=== PATIENT | male | born 1970 | race Caucasian/White ===

== ENCOUNTER → 2016-07-18 | Outpatient (CLI) | payer BC ==
[~2016-07-18] MED LIST: ALBUAER19 INH; COLE625T PO; CYAN3INJ INJ; DEXA4INJ38 IV; MRC50 PO; MULT-663 PO; RMCI IV; SITA100T3 PO; [UNRECOGNIZED DRUG - OTHER] IV
[2016-07-18 13:49] LABS: ALB/GLOB RATIO 0.9 (0.9-2); ALKALINE PHOSPHATASE 86 U/L (45-117); ALT/SGPT 31 U/L (12-78); AST/SGOT 17 U/L (15-37); BLOOD UREA NITROGEN 15 mg/dl (7-18); BUN/CREATININE RATIO 18.6 (10-20); CALCIUM 8.4 mg/dl (8.5-10.1); CARBON DIOXIDE 30 mmol/L (21-32); CHLORIDE 106 mmol/L (98-107); CREATININE 0.82 mg/dl (0.60-1.40); GLUCOSE 86 mg/dl (70-99); SODIUM 142 mmol/L (136-145)
== END | disposition home or self-care (01) ==
LOC: C.LAB1850 11:47
PROVIDERS: ATTEND Internal Medicine Infectious Disease
DX: R76.12 Nonspecific reaction to cell mediated immunity measurement of gamma interferon antigen response without active tuberculosis (principal)

== ENCOUNTER → 2016-11-20 | Outpatient (CLI) | payer BC ==
[~2016-11-20] MED LIST changes: +DEXA4INJ32 IV; -DEXA4INJ38 IV
[2016-11-20 10:49] LABS: BASO % 0.5 %; BASO ABS # 0.04 K/uL (0-0.2); COMPLETE YES; EOS % 5.6 %; HEMATOCRIT 42.8 % (42-52); IG% 0.3 %; LYMPH % 33.2 %; LYMPH ABS # 2.45 K/uL (1.2-3.4); MEAN CELL VOLUME 92.4 fL (80-100); MEAN CORPUSCULAR HEMOGLOBIN 32.6 pg (25-34); MEAN CORPUSCULAR HGB CONC 35.3 g/dl (32-36); MEAN PLATELET VOLUME 9.7 fL (7.4-10.4); MONO % 8.5 %; NEUT % 51.9 %; PLATELET COUNT 242 K/uL (130-400); RED BLOOD COUNT 4.63 M/uL (4.7-6.1); WHITE BLOOD COUNT 7.37 K/uL (4.8-10.8)
[2016-11-20 11:08] LABS: ALT/SGPT 44 U/L (12-78); BLOOD UREA NITROGEN 17 mg/dl (7-18); BUN/CREATININE RATIO 17.7 (10-20); CARBON DIOXIDE 26 mmol/L (21-32); CHLORIDE 108 mmol/L (98-107); CHOLESTEROL 131 mg/dl (0-200); CREATININE 0.94 mg/dl (0.60-1.40); GLUCOSE 164 mg/dl (70-99); POTASSIUM 4.1 mmol/L (3.5-5.1); SODIUM 140 mmol/L (136-145); TRIGLYCERIDES 634 mg/dl (0-150)
[2016-11-20 11:22] LABS: ALB/GLOB RATIO 0.9 (0.9-2); ALKALINE PHOSPHATASE 113 U/L (45-117); AST/SGOT 18 U/L (15-37); CHOLESTEROL/HDL RATIO 7.7; HDL CHOLESTEROL 17 mg/dl
[2016-11-20 11:31] LABS: CALCIUM 8.4 mg/dl (8.5-10.1)
== END | disposition home or self-care (01) ==
LOC: C.LABBC 08:08
PROVIDERS: ATTEND Nurse Practitioner Family
DX: K50.90 Crohn's disease, unspecified, without complications (principal); E88.81 Metabolic syndrome and other insulin resistance; G47.33 Obstructive sleep apnea (adult) (pediatric); R73.9 Hyperglycemia, unspecified; K21.9 Gastro-esophageal reflux disease without esophagitis; J45.909 Unspecified asthma, uncomplicated; F32.9 Major depressive disorder, single episode, unspecified

== ENCOUNTER → 2017-04-02 | Outpatient (CLI) | payer BC ==
[~2017-04-02] MED LIST changes: -DEXA4INJ32 IV; +DEXA4INJ38 IV
[2017-04-02 12:50] LABS: BASO % 0.5 %; BASO ABS # 0.04 K/uL (0-0.2); COMPLETE YES; EOS % 4.8 %; HEMATOCRIT 43.2 % (42-52); IG% 0.1 %; LYMPH % 33.6 %; LYMPH ABS # 2.81 K/uL (1.2-3.4); MEAN CELL VOLUME 91.1 fL (80-100); MEAN CORPUSCULAR HEMOGLOBIN 32.5 pg (25-34); MEAN CORPUSCULAR HGB CONC 35.6 g/dl (32-36); MEAN PLATELET VOLUME 9.6 fL (7.4-10.4); MONO % 7.7 %; NEUT % 53.3 %; PLATELET COUNT 230 K/uL (130-400); RED BLOOD COUNT 4.74 M/uL (4.7-6.1); WHITE BLOOD COUNT 8.36 K/uL (4.8-10.8)
[2017-04-02 13:24] LABS: ALKALINE PHOSPHATASE 91 U/L (45-117); ALT/SGPT 30 U/L (12-78); AST/SGOT 15 U/L (15-37); BLOOD UREA NITROGEN 14 mg/dl (7-18); BUN/CREATININE RATIO 20.4 (10-20); C-REACTIVE PROTEIN < 0.29 mg/dl (0-0.29); CALCIUM 9.1 mg/dl (8.5-10.1); CARBON DIOXIDE 26 mmol/L (21-32); CHLORIDE 106 mmol/L (98-107); GLUCOSE 92 mg/dl (70-99); POTASSIUM 3.9 mmol/L (3.5-5.1); SODIUM 139 mmol/L (136-145)
[2017-04-04 14:14] LABS: QUANTIF TB AG-NIL 0.36 IU/ML; QUANTIFERON NIL 0.04 IU/ML
== END | disposition home or self-care (01) ==
LOC: C.LAB 12:05
PROVIDERS: ATTEND Registered Nurse
DX: K50.90 Crohn's disease, unspecified, without complications (principal)

== ENCOUNTER → 2017-04-07 | Outpatient (CLI) | payer BC ==
--- NOTE | 2017-04-07 16:47 | DIAGNOSTIC IMAGING REPORT ---
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 FINDINGS: The lungs are clear. Cardiac silhouette remains mildly enlarged. No pleural effusions. No pneumothorax. IMPRESSION: Stable mild cardiomegaly. Electronically signed by: Jarrett Alvarez M.D. 04/07/2017 4:46 PM Dictated Date/Time: 04/07/2017 4:45 PM
== END | disposition home or self-care (01) ==
LOC: C.RAD 16:33
PROVIDERS: ATTEND Registered Nurse
DX: R76.12 Nonspecific reaction to cell mediated immunity measurement of gamma interferon antigen response without active tuberculosis (principal); I51.7 Cardiomegaly

== ENCOUNTER → 2017-05-08 | Outpatient (CLI) | payer BC ==
[~2017-05-08] MED LIST changes: +DEXA4INJ32 IV; -DEXA4INJ38 IV
== END | disposition home or self-care (01) ==
LOC: C.MAMM 14:31
PROVIDERS: ATTEND Registered Nurse
DX: K50.90 Crohn's disease, unspecified, without complications (principal); M85.852 Other specified disorders of bone density and structure, left thigh

== ENCOUNTER → 2017-05-21 | Outpatient (CLI) | payer BC ==
[2017-05-21 10:04] LABS: ALT/SGPT 45 U/L (12-78); AST/SGOT 21 U/L (15-37); BLOOD UREA NITROGEN 17 mg/dl (7-18); BUN/CREATININE RATIO 21.2 (10-20); CALCIUM 8.6 mg/dl (8.5-10.1); CARBON DIOXIDE 28 mmol/L (21-32); CHLORIDE 106 mmol/L (98-107); CREATININE 0.79 mg/dl (0.60-1.40); GLUCOSE 172 mg/dl (70-99); POTASSIUM 3.7 mmol/L (3.5-5.1); SODIUM 140 mmol/L (136-145)
[2017-05-21 10:07] LABS: ALB/GLOB RATIO 0.9 (0.9-2); ALKALINE PHOSPHATASE 98 U/L (45-117); CHOLESTEROL 122 mg/dl (0-200); CHOLESTEROL/HDL RATIO 4.5; HDL CHOLESTEROL 27 mg/dl; LDL CHOLESTEROL CALCULATED 19 mg/dl; TRIGLYCERIDES 382 mg/dl (0-150); VERY LOW DENSITY LIPOPROT CALC 76 mg/dl
[2017-05-21 10:12] LABS: BASO % 0.5 %; BASO ABS # 0.04 K/uL (0-0.2); COMPLETE YES; EOS % 6.3 %; HEMATOCRIT 44.1 % (42-52); IG% 0.3 %; LYMPH % 31.8 %; LYMPH ABS # 2.32 K/uL (1.2-3.4); MEAN CELL VOLUME 91.5 fL (80-100); MEAN CORPUSCULAR HEMOGLOBIN 33.2 pg (25-34); MEAN CORPUSCULAR HGB CONC 36.3 g/dl (32-36); MEAN PLATELET VOLUME 10.1 fL (7.4-10.4); NEUT % 52.1 %; PLATELET COUNT 233 K/uL (130-400); RED BLOOD COUNT 4.82 M/uL (4.7-6.1)
[2017-05-21 10:22] LABS: ESTIMATED AVERAGE GLUCOSE 117 mg/dl; HA1C FLAG Normal (Normal)
[2017-05-21 10:31] LABS: RATIO 15.4 mcg/mg (0-30.0)
== END | disposition home or self-care (01) ==
LOC: C.LAB 06:58
PROVIDERS: ATTEND Nurse Practitioner Family
DX: K50.90 Crohn's disease, unspecified, without complications (principal); E88.81 Metabolic syndrome and other insulin resistance; G47.33 Obstructive sleep apnea (adult) (pediatric); K21.9 Gastro-esophageal reflux disease without esophagitis; E66.9 Obesity, unspecified; J45.909 Unspecified asthma, uncomplicated; F32.9 Major depressive disorder, single episode, unspecified; R73.9 Hyperglycemia, unspecified

== ENCOUNTER 2023-04-22 09:47 | Inpatient (IN) ==
[2023-04-22 11:13] LABS: Basophils # (auto) 0.04 K/uL (0.00-0.20); Basophils % (auto) 0.3 %; Eosinophils # (auto) 0.08 K/uL (0.00-0.50); Eosinophils % (auto) 0.6 %; Hematocrit (blood only) 45.8 % (42.0-52.0); Hemoglobin 16.5 g/dl (14.0-18.0); Immature Granulocytes # (auto) 0.04 K/uL (0.01-0.20); Immature Granulocytes % (auto) 0.3 %; Lymphocytes # (auto) 1.43 K/uL (1.20-3.40); Lymphocytes % (auto) 11.4 %; Mean Corpuscular Hemoglobin 31.8 pg (25.0-34.0); Mean Corpuscular Volume 88.2 fL (80.0-100.0); Mean Platelet Volume 9.6 fL (9.4-12.4); Monocytes % (auto) 4.8 %; Neutrophils % (auto) 82.6 %; Platelet Count 263 K/uL (130-400); RDW Coefficient of Variation 12.7 % (11.5-14.5); RDW Standard Deviation 41.1 fL (36.4-46.3); Red Blood Count 5.19 M/uL (4.70-6.10); White Blood Count 12.59 K/ul (4.8-10.8)
[2023-04-22 11:25] LABS: Albumin Globulin Ratio 1.4 (0.9-2); Albumin Level 4.6 gm/dl (3.4-5.0); BUN Creatinine Ratio 22.9 (10-20); Bilirubin,Total 1.6 mg/dl (0.2-1.0); Calcium 9.9 mg/dl (8.6-10.3); Globulin 3.4 gm/dl (2.5-4.0); Potassium 4.4 mmol/L (3.5-5.1)
[2023-04-22] MEDS ORDERED: OPTIRAY 320 100ml IV ONE (11:57)
--- NOTE | 2023-04-22 12:42 | CT Scan Report ---
ABDOMEN AND PELVIS CT WITH IV CONTRAST CT DOSE: 1510.57 mGy.cm HISTORY: Acute abdominal pain in patient with history of inflammatory bowel disease Abdominal pain TECHNIQUE: Multiaxial CT images of the abdomen and pelvis were performed following the IV administrat ion of 93 cc of Optiray, A dose lowering technique was utilized adhering to the principles of ALARA. COMPARISON STUDY: 06/25/2013 FINDINGS: A nonspecific subcarinal lymphadenopathy. Clear lung bases. No free air. The spleen is mild ly enlarged, 15.7 cm. The liver is mildly enlarged, 21 cm in length. Hepatic steatosis. Patency of th e hepatic and portal veins. Distended gallbladder with cholelithiasis, borderline wall thickening and trace pericholecystic edema. 3 mm calcification noted on image 168 series 3 which appears to be with in the distal common bile duct. No significant biliary ductal dilation. Unremarkable pancreas and adr enal glands. 3 mm nonobstructing calculus of the interpolar right kidney. There is no hydronephrosis. Decompressed urinary bladder with mild wall thickening. Mild prostatomegaly. Surgical clips of the scrotum. Borde rline enlarged inguinal lymph nodes. No abdominal aortic aneurysm. No bowel obstruction. Possible chr onic perianal fistula on image 409 series 3. No abscess. There is mild nonspecific circumferential wa ll thickening of the inferior rectum with subcentimeter perirectal lymph nodes. Colonic diverticulosi s. Postoperative changes of right hemicolectomy with ileocolic anastomosis. Postoperative changes of the anterior abdominal wall. No acute fracture. IMPRESSION: 1. Cholelithiasis with CT evidence of mild acute cholecystitis. 2. Choledocholithiasis without biliary ductal dilation. 3. Mild rectal wall thickening with adjacent subcentimeter perirectal lymph nodes may represent a non specific proctitis, possibly related to the patient's chronic inflammatory bowel disease. This findin g could be correlated with colonoscopy. 4. Prior right hemicolectomy with ileocolic anastomosis. 5. No bowel obstruction or pneumoperitoneum. 6. Right nephrolithiasis without hydronephrosis. 7. Hepatosplenomegaly with hepatic steatosis. ACT 112: Negative or not required by law. The above report was generated using voice recognition software. It may contain grammatical, syntax o r spelling errors. Electronically signed by: Freddie Davidson M.D. 04/22/2023 12:40 PM
[2023-04-22] MEDS ORDERED: SODIUM CHLORIDE 0.9% 1,000 ML IV ONE (12:49)
[2023-04-22] MEDS ORDERED: ACETAMINOPHEN 1,000 MG/100 ML VIAL IV STA (12:49)
--- NOTE | 2023-04-22 12:53 | Emergency Department Note ---
Impression & Plan Cholecystitis, Choledocholithiasis ED Provider Note NAME: LONG GONZALEZ AGE: 52 SEX: M : 1970 ARRIVES VIA: Walk-In INFORMANT: Patient, ED PROVIDER(S): Marilin Rivas MD CHIEF COMPLAINT: Abdominal pain HPI: This is a 52-year-old male with history of Crohn's status post partial colectomy, previous SBO presenting for abdominal pain. He states that around 2:30 in the morning he began having abdominal pain on the right side. In the past he has had similar pain and thought it is related to an SBO. He came in for further evaluation. At this time he notes he has had 1 episode of bowel movement, nonbloody, otherwise nausea without vomiting. No fevers or chills. He notes he does not have his appendix Points around the any further. Does have his gallbladder and points around the any further. Does have his gallbladder in the past ROS: See above HPI for pertinent positives & negatives. A total of 10 systems reviewed and were otherwise negative. PAST MEDICAL HISTORY: See Below PAST SURGICAL HISTORY: See Below FAMILY HISTORY: See Below SOCIAL HISTORY: See Below HOME MEDICATIONS: See Below ALLERGIES: See Below VITALS: See Below PHYSICAL EXAMINATION: General: resting comfortably in no acute distress Head: Normocephalic and atraumatic Eyes: Normal inspection, extraocular muscles intact, no conjunctival pallor Ear, nose, throat: Normal external exam Neck: Normal range of motion Respiratory: Patient is in no respiratory distress, lungs clear to auscultation bilaterally Cardiovascular: RRR without murmur appreciated GI: Soft, right upper quadrant tenderness, positive Og Extremities: pulses intact with good cap refills, no LE pitting edema or calf tenderness Neuro: The patient awake and alert, appropriately conversive,no focal decifits Skin: Warm, dry, and intact MEDICAL DECISION MAKING: This is a 52-year-old male history of Crohn's disease status post colectomy, previous SBO, presenting for abdominal pain. Patient has a right upper quadrant pain, consider multiple etiologies including cholecystitis. Patient's triage work-up including blood work and CT imaging do show sniffing abnormalities. Patient CT imaging reveals cholecystitis as well as choledocholithiasis. Sodium is 133. Total bilirubin is 1.6. Otherwise no significant abnormalities. Urinalysis does not reveal signs of urinary tract infection. Patient leukocytosis is 12.59 otherwise Discussed with general surgery on-call, Dr. Magallanes, who evaluated the patient at bedside. They recommended admission to medicine and GI consult. I talked to the PA for GI who will discuss with attending, with plan for ERCP. Discussed with Dr. Mckeon for admission for cholecystitis/choledocholithiasis. Triage Nursing notes reviewed. Prior medical records reviewed Vital Signs: reviewed and remarkable for no significant abnormalities Differential diagnosis: Cholecystitis, SBO, pancreatitis, volvulus ER treatment provided: See below Diagnostics interpreted by me: ECG: None Cardiac Monitoring: An order was placed for continuous cardiac monitoring. The monitor shows a rate of 78 with sinus rhythm. Laboratory studies: As stated above and show below. Imaging studies: See below. Radiographic imaging was reviewed by myself Consultation(s): General surgery, GI Past Med/Surg History Medical History (Updated 04/22/23 @ 17:05 by Marilin Rivas MD) Anxiety Asthma exercise induced--inhaler prn Colon polyps Crohns disease Diabetes mellitus, type 2 on trulicity Enlarged heart worked up--found no issues, no mobile homes repairer History of vertebral anomaly, anal atresia, tracheo-esophageal fistula, esophageal atresia, renal anomaly, and radial dysplasia (VATER) association Latent tuberculosis Sleep apnea cpap Surgical History History of bowel resection 2000 @ [facility] pt states 4 ft of small intestine and ileum removed History of colonoscopy last 02/2020 @ [facility] History of herniorrhaphy x3 History of ileostomy History of major abdominal surgery "lateral release" d/t hernias History of reversal of ileostomy History of tooth extraction History of wisdom tooth extraction Hx of vasectomy S/P appendectomy Family History Grandfather (Maternal) Diabetes Grandfather (Paternal) Family history of reaction to anesthesia 40yrs ago had hiccups after sx (pt does not know what kind of surgery) believes it was general anesthesia---no other information provided Denies family history of Colon cancer Ovarian cancer Prostate cancer Myocardial infarction Breast cancer Ulcerative colitis Social History Smoking Status: Never smoker Second Hand Exposure: No; Do You Dip or Chew Tobacco: No; Hx Alcohol Use: No Hx Substance Use: No Preferred Language: Georgian Communication Ability: Effective Visual Impairment: No Limitations Hearing Ability: Normal Loom Mechanic Required: No Beliefs That Will Affect Care: None marital status: Current Living Situation: Spouse Current Living Situation Comment: Lives with current occupational status: 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 Feels Safe at Home: Yes Childhood Exposure to Second-Hand Smoke: No Diet: regular Dental Care, Regularly: Yes Physical Activity Frequency: 1-2 Times per Week Seatbelt Use: always Sunscreen Use: Yes Assistive Devices: Contacts and CPAP Allergies Allergies Allergy/AdvReac Type Severity Reaction Status Date / Time No Known Drug Allergies Allergy Unknown Verified 04/22/23 12:43 Home Meds Home Medications Medication Instructions Recorded Confirmed infliximab 100 mg intravenous 10 mg IV UD 05/03/19 04/22/23 solution (Remicade) calcium carbonate 500 mg-vitamin 1 tab PO QPM 06/03/19 04/22/23 D3 5 mcg (200 unit) tablet (Calcium 500 + D) dexamethasone sodium phos (PF) 10 5 mg IV UD REACTION TO REMICADE 06/03/19 04/22/23 mg/mL injection kit colesevelam 625 mg tablet (WelChol) 625 mg PO BID 04/22/23 04/22/23 semaglutide 0.25 mg or 0.5 mg (2 0.5 mg subcut WK 04/22/23 04/22/23 mg/3 mL) subcutaneous pen injector (Ozempic) venlafaxine 37.5 mg 0 mg PO QPM 04/22/23 04/22/23 capsule,extended release 24 hr (Effexor XR) Previous Rx's Medication Instructions Recorded blood sugar diagnostic #10 ea 04/28/20 blood-glucose meter #1 ea 04/28/20 lancets #100 ea 04/25/21 albuterol sulfate 90 mcg/actuation 2 puff inhalation Q6H PRN Wheezing 10/14/22 aerosol inhaler #8.5 grams blood sugar diagnostic (OneTouch #100 ea 10/14/22 Verio test strips) cyanocobalamin (vitamin B-12) 1,000 mcg IM Q7D #30 mL 10/14/22 1,000 mcg/mL injection solution mercaptopurine 50 mg tablet 100 mg PO QPM #180 tabs 10/14/22 syringe with needle 3 mL 25 gauge #30 ea 12/18/22 x 1" (BD Luer-Ying Syringe) Results & Data (ED) Vital Signs Vital Signs - 24 hr 04/22/23 10:17 04/22/23 13:59 04/22/23 15:00 Temperature 36 C L Temperature Source Temporal Artery Scan Pulse Rate 60 Pulse Rate [Finger] 79 78 Respiratory Rate 18 16 16 Respiratory Effort / Characteristics Non-Labored Respiratory Depth Normal Blood Pressure 170/98 H Blood Pressure [Right Arm] 159/98 H 162/104 H Blood Pressure Mean 122 Blood Pressure Mean [Right Arm] 118 123 Pulse Oximetry 99 97 96 Oxygen Delivery Method Room Air Room Air Room Air Sepsis Recent Fever Within 48 Hours No Sepsis New/Unexplained Change in Mental Status No Sepsis Action Taken by Nursing No Action Required Laboratory Data 04/22/23 10:44 04/22/23 10:44 Lab Results 04/22/23 04/22/23 04/22/23 Range/Units 10:44 10:44 14:01 WBC 12.59 H (4.8-10.8) K/ul RBC 5.19 (4.70-6.10) M/uL Hgb 16.5 (14.0-18.0) g/dl Hct 45.8 (42.0-52.0) % MCV 88.2 (80.0-100.0) fL MCH 31.8 (25.0-34.0) pg MCHC 36.0 (32.0-36.0) g/dL RDW Std Deviation 41.1 (36.4-46.3) fL RDW Coeff of Marcela 12.7 (11.5-14.5) % Plt Count 263 (130-400) K/uL MPV 9.6 (9.4-12.4) fL Immature Gran % (Auto) 0.3 % Neut % (Auto) 82.6 % Lymph % (Auto) 11.4 % [place] % (Auto) 4.8 % Eos % (Auto) 0.6 % Baso % (Auto) 0.3 % Neut # (Auto) 10.40 H (1.40-6.50) K/uL Lymph # (Auto) 1.43 (1.20-3.40) K/uL [place] # (Auto) 0.60 H (0.11-0.59) K/uL Eos # (Auto) 0.08 (0.00-0.50) K/uL Baso # (Auto) 0.04 (0.00-0.20) K/uL Immature Gran # (Auto) 0.04 (0.01-0.20) K/uL Sodium 133 L (136-145) mmol/L Potassium 4.4 (3.5-5.1) mmol/L Chloride 101 (98-107) mmol/L Carbon Dioxide 27 (21-32) mmol/L Anion Gap 5 (3-11) BUN 16 (6-23) mg/dl Creatinine 0.70 (0.6-1.4) mg/dl Est Cr Clr Drug Dosing 153.0 ml/min Est GFR ( Amer) 124.0 ml/min Est GFR (Non-Af Amer) 107.0 ml/min BUN/Creatinine Ratio 22.9 H (10-20) Glucose 232 H (70-99(Fasting)) mg/dl Calcium 9.9 (8.6-10.3) mg/dl Total Bilirubin 1.6 H (0.2-1.0) mg/dl AST 22 (13-39) U/L ALT 39 (7-52) U/L Alkaline Phosphatase 93 (34-104) U/L Total Protein 8.0 (6.0-8.3) gm/dl Albumin 4.6 (3.4-5.0) gm/dl Globulin 3.4 (2.5-4.0) gm/dl Albumin/Globulin Ratio 1.4 (0.9-2) Lipase 26 (11-82) U/L Urine Color Yellow Urine Appearance Clear (Clear) Urine pH 5.5 (4.5-7.5) Ur Specific [place] 1.044 H (1.000-1.030) Urine Protein Negative (Negative) Urine Glucose (UA) 3+ H (Negative) Urine Ketones Trace H (Negative) Urine Blood Negative (Negative) Urine Nitrite Negative (Negative) Urine Bilirubin Negative (Negative) Urine Urobilinogen Negative (Negative) Ur Leukocyte Esterase Negative (Negative) Administered Medications Hydromorphone HCl (Hydromorphone Inj 0.5 Mg/0.5 Ml Syr) 0.5 mg IV Q3H PRN PRN Reason: Pain Stop: 05/06/23 15:20 Last Admin: 04/22/23 16:21 Dose: 0.5 mg Documented By: ACC Parenteral Electrolytes (Plasma-Lyte A Ph 7.4) 1,000 mls @ 125 mls/hr IV .Q8H BLANCA Stop: 05/22/23 14:14 Last Admin: 04/22/23 16:35 Dose: 125 mls/hr Documented By: ACC Discontinued Medications Sodium Chloride (Nss) 1,000 mls @ 999 mls/hr IV .Q1H1M ONE Stop: 04/22/23 13:49 Last Infusion: 04/22/23 14:26 Dose: 0 mls/hr Documented By: Admin: 04/22/23 12:58 Dose: 999 mls/hr Documented By: ACC Acetaminophen (Ofirmev) 1,000 mg in 100 mls @ 400 mls/hr IV NOW STA Stop: 04/22/23 13:03 Last Infusion: 04/22/23 14:26 Dose: 0 mls/hr Documented By: Admin: 04/22/23 12:57 Dose: 400 mls/hr Documented By: ACC Ceftriaxone Sodium 2,000 mg/ (Dextrose) 50 mls @ 100 mls/hr IV NOW STA; Protocol Stop: 04/22/23 13:25 Last Infusion: 04/22/23 16:36 Dose: 0 mls/hr Documented By: Admin: 04/22/23 14:22 Dose: 100 mls/hr Documented By: ACC Metronidazole (Flagyl) 500 mg in 100 mls @ 100 mls/hr IV NOW STA; Protocol Stop: 04/22/23 15:07 Last Infusion: 04/22/23 16:36 Dose: 0 mls/hr Documented By: Admin: 04/22/23 15:30 Dose: 100 mls/hr Documented By: ACC Ioversol (Optiray 320 100ml) 93 ml IV ONCE ONE Stop: 04/22/23 11:58 Last Admin: 04/22/23 11:57 Dose: 93 ml Documented By: WILIAM Imaging Data Radiologist's Impression: Abdomen/Pelvis CT 04/22/23 11:[address] WITH IV CONTRAST CT DOSE: 1510.57 mGy.cm HISTORY: Acute abdominal pain in patient with history of inflammatory bowel disease Abdominal pain TECHNIQUE: Multiaxial CT images of the abdomen and pelvis were performed following the IV administration of 93 cc of Optiray, A dose lowering technique was utilized adhering to the principles of ALARA. COMPARISON STUDY: 06/25/2013 FINDINGS: A nonspecific subcarinal lymphadenopathy. Clear lung bases. No free air. The spleen is mildly enlarged, 15.7 cm. The liver is mildly enlarged, 21 cm in length. Hepatic steatosis. Patency of the hepatic and portal veins. Distended gallbladder with cholelithiasis, borderline wall thickening and trace pericholecystic edema. 3 mm calcification noted on image 168 series 3 which appears to be within the distal common bile duct. No significant biliary ductal dilation. Unremarkable pancreas and adrenal glands. 3 mm nonobstructing calculus of the interpolar right kidney. There is no hydronephrosis. Decompressed urinary bladder with mild wall thickening. Mild prostatomegaly. Surgical clips of the scrotum. Borderline enlarged inguinal lymph nodes. No abdominal aortic aneurysm. No bowel obstruction. Possible chronic perianal fistula on image 409 series 3. No abscess. There is mild nonspecific circumferential wall thickening of the inferior rectum with subcentimeter perirectal lymph nodes. Colonic diverticulosis. Postoperative changes of right hemicolectomy with ileocolic anastomosis. Postoperative changes of the anterior abdominal wall. No acute fracture. IMPRESSION: 1. Cholelithiasis with CT evidence of mild acute cholecystitis. 2. Choledocholithiasis without biliary ductal dilation. 3. Mild rectal wall thickening with adjacent subcentimeter perirectal lymph nodes may represent a nonspecific proctitis, possibly related to the patient's chronic inflammatory bowel disease. This finding could be correlated with colonoscopy. 4. Prior right hemicolectomy with ileocolic anastomosis. 5. No bowel obstruction or pneumoperitoneum. 6. Right nephrolithiasis without hydronephrosis. 7. Hepatosplenomegaly with hepatic steatosis. ACT 112: Negative or not required by law. The above report was generated using voice recognition software. It may contain grammatical, syntax or spelling errors. Electronically signed by: Freddie Davidson M.D. 04/22/2023 12:40 PM Discharge Plan Visit Data Chief Complaint: Abdominal Pain Stated Complaint: ABD PAIN ED Provider: Marilin Rivas Discharge Problem: Cholecystitis, Choledocholithiasis Forms Stand Alone Forms: [facility] Prescriptions Prescriptions: No Action Remicade 100 mg recon soln 10 mg IV UD Patient Comments: 10 mg/kg IV Q6 Weeks; Rx Instructions: 10 mg/kg IV Q6 Weeks; (DME) lancets Misc See Rx Instructions .ROUTE .MEDSUPPLY Qty: 100 0RF Rx Instructions: once daily as directed - dx E11.9 (DME) BD Luer-Ying Syringe 3 mL 25 gauge x 1" syringe See Rx Instructions .Route Qty: 30 0RF Rx Instructions: As directed calcium carbonate-vitamin D3 [Calcium 500 + D] 500 mg(1,250mg) -200 unit tablet 1 tab PO QPM dexamethasone sodium phos (PF) 10 mg/mL kit 5 mg IV UD (DME) blood sugar diagnostic Strip See Rx Instructions .ROUTE .MEDSUPPLY Qty: 10 0RF Rx Instructions: once daily as directed - dx E11.9 (DME) blood-glucose meter Kit See Rx Instructions .ROUTE .MEDSUPPLY Qty: 1 0RF Rx Instructions: once daily as directed - dx E11.9 cyanocobalamin (vitamin B-12) 1,000 mcg/mL solution 1,000 mcg IM Q7D Qty: 30 3RF Rx Instructions: FRIDAY (DME) OneTouch Verio test strips Strip See Rx Instructions .ROUTE .MEDSUPPLY Qty: 100 1RF Rx Instructions: Use to test once daily albuterol sulfate 90 mcg/actuation HFA aerosol inhaler 2 puff INHALATION Q6H PRN (Reason: Wheezing) Qty: 8.5 1RF mercaptopurine 50 mg tablet 100 mg PO QPM Qty: 180 2RF venlafaxine [Effexor XR] 37.5 mg capsule,extended release 24hr 0 mg PO QPM Rx Instructions: Per pt, he is currently holding medication. PCP is not aware. Original directions were 75mg at bedtime colesevelam [WelChol] 625 mg tablet 625 mg PO BID Ozempic 0.25 mg or 0.5 mg (2 mg/3 mL) pen injector 0.5 mg subcut WK Rx Instructions: Mondays Referrals Referrals: Suhas Quiroz III, CRNP [Primary Care Provider] -
[2023-04-22] MEDS ORDERED: cefTRIAXone SODIUM 2,000 MG in DEXTROSE 5 % MINI-B 50 ML IV STA (12:56)
--- NOTE | 2023-04-22 13:48 | Surgery Consultation ---
Date of Consultation April 22, 2023 Assessment & Plan (1) Choledocholithiasis with acute cholecystitis: Patient is a 52 yo male with a PMH of Crohn disease, exercise induce asthma, HLD, HTN, Depression, BM, COOPER, obesity that presented to the [facility] ER with c/o right abdominal pain that started at 2 AM. Patient reports he had N/V earlier but denies currently. He has a known history of cholelithiasis that has been seen on prior CT exams however this is the first time he is has ever had pain. He has an extensive surgical history including partial right colectomy, temporary ileostomy with reversal, appendectomy, incisional hernia repair with mesh, lateral release with total vs partial mesh removal. Last abdominal surgery was 10 years ago at [place]. Patient states he takes Welchol daily which usually gives him diarrhea however the past few days he feels he has been constipated and last BM was this AM. Does not take blood thinners and has been NPO since MT. WBC 12.5, lactate 0.6, LFTs WNL other than T. Bilirubin 1.6 CT scan shows IMPRESSION: 1. Cholelithiasis with CT evidence of mild acute cholecystitis. 2. Choledocholithiasis without biliary ductal dilation. 3. Mild rectal wall thickening with adjacent subcentimeter perirectal lymph nodes may represent a nonspecific proctitis, possibly related to the patient's chronic inflammatory bowel disease. This finding could be correlated with colonoscopy. 4. Prior right hemicolectomy with ileocolic anastomosis. 5. No bowel obstruction or pneumoperitoneum. 6. Right nephrolithiasis without hydronephrosis. 7. Hepatosplenomegaly with hepatic steatosis. Admit to medicine Continue IV fluids and antbx IV analgesics Keep NPO Consult GI, if patient can have ERCP tomorrow or today Will schedule for a Laparoscopic cholecystectomy for History of Present Illness Reason for Consultation: Mild Acute Cholecystitis Requesting Physician: Dr. Rivas Attending Physician: Dr. Rivas History of Present Illness Patient is a 52 yo male with a PMH of Crohn disease, exercise induce asthma, HLD, HTN, Depression, BM, COOPER, obesity that presented to the [facility] ER with c/o right abdominal pain that started at 2 AM. Patient reports he had N/V earlier but denies currently. He has a known history of cholelithiasis that has been seen on prior CT exams however this is the first time he is has ever had pain. He has an extensive surgical history including partial right colectomy, temporary ileostomy with reversal, appendectomy, incisional hernia repair with mesh, lateral release with total vs partial mesh removal. Last abdominal surgery was 10 years ago at [place]. Does not take blood thinners and has been NPO since MT. Allergies Allergy/AdvReac Type Severity Reaction Status Date / Time No Known Drug Allergies Allergy Unknown Verified 04/22/23 12:43 Home Medications Medication Instructions Recorded Confirmed Type infliximab 100 mg intravenous 10 mg IV UD 05/03/19 04/22/23 History solution (Remicade) calcium carbonate 500 mg-vitamin 1 tab PO QPM 06/03/19 04/22/23 History D3 5 mcg (200 unit) tablet (Calcium 500 + D) dexamethasone sodium phos (PF) 10 5 mg IV UD REACTION TO REMICADE 06/03/19 04/22/23 History mg/mL injection kit blood sugar diagnostic #10 ea 04/28/20 04/17/23 Rx blood-glucose meter #1 ea 04/28/20 04/17/23 Rx lancets #100 ea 04/25/21 04/17/23 Rx albuterol sulfate 90 mcg/actuation 2 puff inhalation Q6H PRN Wheezing 10/14/22 04/22/23 Rx aerosol inhaler #8.5 grams blood sugar diagnostic (OneTouch #100 ea 10/14/22 04/17/23 Rx Verio test strips) cyanocobalamin (vitamin B-12) 1,000 mcg IM Q7D #30 mL 10/14/22 04/22/23 Rx 1,000 mcg/mL injection solution mercaptopurine 50 mg tablet 100 mg PO QPM #180 tabs 10/14/22 04/22/23 Rx syringe with needle 3 mL 25 gauge #30 ea 12/18/22 04/17/23 Rx x 1" (BD Luer-Ying Syringe) colesevelam 625 mg tablet (WelChol) 625 mg PO BID 04/22/23 04/22/23 History semaglutide 0.25 mg or 0.5 mg (2 0.5 mg subcut WK 04/22/23 04/22/23 History mg/3 mL) subcutaneous pen injector ([employer]) venlafaxine 37.5 mg 0 mg PO QPM 04/22/23 04/22/23 History capsule,extended release 24 hr (Effexor XR) Patient History Medical History Anxiety Asthma exercise induced--inhaler prn Colon polyps Crohns disease Diabetes mellitus, type 2 on trulicity Enlarged heart worked up--found no issues, 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 History of vertebral anomaly, anal atresia, tracheo-esophageal fistula, esophageal atresia, renal anomaly, and radial dysplasia (VATER) association Latent tuberculosis Sleep apnea cpap Surgical History History of bowel resection 2000 @ [facility] pt states 4 ft of small intestine and ileum removed History of colonoscopy last 02/2020 @ [facility] History of herniorrhaphy x3 History of ileostomy History of major abdominal surgery "lateral release" d/t hernias History of reversal of ileostomy History of tooth extraction History of wisdom tooth extraction Hx of vasectomy S/P appendectomy Family History Grandfather (Maternal) Diabetes Grandfather (Paternal) Family history of reaction to anesthesia 40yrs ago had hiccups after sx (pt does not know what kind of surgery) believes it was general anesthesia---no other information provided Denies family history of Colon cancer Ovarian cancer Prostate cancer Myocardial infarction Breast cancer Ulcerative colitis Social History Smoking Status: Never smoker Second Hand Exposure: No; Do You Dip or Chew Tobacco: No; Hx Alcohol Use: No Hx Substance Use: No Preferred Language: Albanian Communication Ability: Effective Visual Impairment: No Limitations Hearing Ability: Normal Doctor Of Chiropractic Required: No Beliefs That Will Affect Care: None marital status: Current Living Situation: Spouse Current Living Situation Comment: Lives with current occupational status: 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 Feels Safe at Home: Yes Childhood Exposure to Second-Hand Smoke: No Diet: regular Dental Care, Regularly: Yes Physical Activity Frequency: 1-2 Times per Week Seatbelt Use: always Sunscreen Use: Yes Assistive Devices: None Review of Systems Constitutional: no fever, no chills and no sweats Respiratory: no dyspnea Cardiovascular: no chest pain Gastrointestinal: + abdominal pain, + nausea (Earlier this AM ) and + vomiting (earlier this AM ) Physical Exam Physical Exam: alert oriented Constitutional: + obese, cooperative and comfortable; no acute distress Respiratory: normal respiratory effort and able to speak in complete sentences; no respiratory distress Cardiovascular: Rate/Rhythm: regular rate Gastrointestinal (Abdomen): Inspection/Auscultation: + abdominal surgical scar Percussion/Palpation: + abdomen tender (RUQ ) and abdomen soft; no guarding Psychiatric: Orientation: alert, oriented x 3 and cooperative Results & Data Vital Signs (Past 12 Hours) Vital Signs Temp Pulse Resp BP Pulse Ox O2 Del Method 04/22/23 10:17 96.8 F L 60 18 170/98 H 99 Room Air Diagnostic Findings [place], [place] [phone] CT Scan Report Patient:LONG GONZALEZ Admit Date:04/22/23 MR#:[id number] Address1:[address] [place] [address] Acct ID:[id number] Address2:[facility] [address] Date:1970 [facility] Zip:[place] [address] Age:52 Location:ED Sex:M Room/Bed: Att Phy: Diagnosis:ABD PAIN [place]er Phy:Suhas Quiroz, THAD, KENTON Service Date:04/22/23 Fam Phy: Interpreting Phy:Freddie DavidsonAdmit Phy: Ordering Phy:Sujata Arreguin PA-C cc: ~ ABDOMEN AND PELVIS CT WITH IV CONTRAST CT DOSE: 1510.57 mGy.cm HISTORY: Acute abdominal pain in patient with history of inflammatory bowel disease Abdominal pain TECHNIQUE: Multiaxial CT images of the abdomen and pelvis were performed following the IV administration of 93 cc of Optiray, A dose lowering technique was utilized adhering to the principles of ALARA. COMPARISON STUDY: 06/25/2013 FINDINGS: A nonspecific subcarinal lymphadenopathy. Clear lung bases. No free air. The spleen is mildly enlarged, 15.7 cm. The liver is mildly enlarged, 21 cm in length. Hepatic steatosis. Patency of the hepatic and portal veins. Distended gallbladder with cholelithiasis, borderline wall thickening and trace pericholecystic edema. 3 mm calcification noted on image 168 series 3 which appears to be within the distal common bile duct. No significant biliary ductal dilation. Unremarkable pancreas and adrenal glands. 3 mm nonobstructing calculus of the interpolar right kidney. There is no hydronephrosis. Decompressed urinary bladder with mild wall thickening. Mild prostatomegaly. Surgical clips of the scrotum. Borderline enlarged inguinal lymph nodes. No abdominal aortic aneurysm. No bowel obstruction. Possible chronic perianal fistula on image 409 series 3. No abscess. There is mild nonspecific circumferential wall thickening of the inferior rectum with subcentimeter perirectal lymph nodes. Colonic diverticulosis. Postoperative changes of right hemicolectomy with ileocolic anastomosis. Postoperative changes of the anterior abdominal wall. No acute fracture. IMPRESSION: 1. Cholelithiasis with CT evidence of mild acute cholecystitis. 2. Choledocholithiasis without biliary ductal dilation. 3. Mild rectal wall thickening with adjacent subcentimeter perirectal lymph nodes may represent a nonspecific proctitis, possibly related to the patient's chronic inflammatory bowel disease. This finding could be correlated with co lonoscopy. 4. Prior right hemicolectomy with ileocolic anastomosis. 5. No bowel obstruction or pneumoperitoneum. 6. Right nephrolithiasis without hydronephrosis. 7. Hepatosplenomegaly with hepatic steatosis. ACT 112: Negative or not required by law. The above report was generated using voice recognition software. It may contain grammatical, syntax or spelling errors. Electronically signed by: Freddie Davidson M.D. 04/22/2023 12:40 PM Dictated:04/22/23 1228 Transcribed: 04/22/23 1228 PG Care Time/CCT Total # of Minutes Spent Total Time Spent with Patient: Total time spent is greater than 50% in coordination of care (as documented) at patient's floor/unit and/or counseling patient: Coding Level of Care Code 24107 IN/OBS CONSULT LVL 3,45M Diagnoses Choledocholithiasis with acute cholecystitis K80.42
[2023-04-22] MEDS ORDERED: metroNIDAZOLE 500 MG/100 ML BAG IV STA (14:08)
--- NOTE | 2023-04-22 14:09 | History & Physical Report ---
Date of Service April 22, 2023 Assessment & Plan (1) Choledocholithiasis with acute cholecystitis: Plan: Ceftriaxone + metronidazole Consult surgery for eventual cholecystectomy Consult gastroenterology for ERCP, NPO, IV fluids Trend CMP Lipase WNL (2) Crohns disease: Plan: Will hold all medications at this time. Recently had Remicade. (3) Obstructive sleep apnea: Plan: CPAP HS - patient to bring in his own (4) Depression: Plan: Currently not taking venlafaxine (5) Diabetes mellitus: Plan: HbA1C 5.8 [04/03] On Ozempic as outpatient, takes on a Friday therefore really shouldn't require insulin although he has 3+ glucose in his urine and glucose 232 on ER labs therefore suspect he is a low glucosylation rate and will prescribe Novolog for correction only Novolog: --Goal BSG Range: Low 110 mg/dL, High 140 mg/dL --Correction Factor: 45 mg/dL/unit No carb ratio --BSGs ACHS if eating, q6h if npo Plan VTE Prophylaxis - deferred pending ERCP/surgery decision Diet - NPO pending possible ERCP today Disposition - admit to med/surg Admission and Anticipated Discharge Date Admission Date: April 22, 2023 History of Present Illness Chief Complaint: Abdominal pain Primary Care Provider: Suhas Quiroz III, KENTON Musa Parker is a 52 year old male with Crohn's disease who presents to the ER with right sided abdominal pain. No prior history of biliary colic. Started while sleeping at 2am and woke him up, constant since then, no radiation. No diarrhea. Associated nausea and vomiting earlier. Severity 8/10 earlier, now 2/10. Prior history of colectomy for crohn's disease with prior small bowel obstructions. Allergies Allergy/AdvReac Type Severity Reaction Status Date / Time No Known Drug Allergies Allergy Unknown Verified 04/22/23 12:43 Home Medications Medication Instructions Recorded Confirmed Type infliximab 100 mg intravenous 10 mg IV UD 05/03/19 04/22/23 History solution (Remicade) calcium carbonate 500 mg-vitamin 1 tab PO QPM 06/03/19 04/22/23 History D3 5 mcg (200 unit) tablet (Calcium 500 + D) dexamethasone sodium phos (PF) 10 5 mg IV UD REACTION TO REMICADE 06/03/19 04/22/23 History mg/mL injection kit blood sugar diagnostic #10 ea 04/28/20 04/17/23 Rx blood-glucose meter #1 ea 04/28/20 04/17/23 Rx lancets #100 ea 04/25/21 04/17/23 Rx albuterol sulfate 90 mcg/actuation 2 puff inhalation Q6H PRN Wheezing 10/14/22 04/22/23 Rx aerosol inhaler #8.5 grams blood sugar diagnostic (OneTouch #100 ea 10/14/22 04/17/23 Rx Verio test strips) cyanocobalamin (vitamin B-12) 1,000 mcg IM Q7D #30 mL 10/14/22 04/22/23 Rx 1,000 mcg/mL injection solution mercaptopurine 50 mg tablet 100 mg PO QPM #180 tabs 10/14/22 04/22/23 Rx syringe with needle 3 mL 25 gauge #30 ea 12/18/22 04/17/23 Rx x 1" (BD Luer-Ying Syringe) colesevelam 625 mg tablet (WelChol) 625 mg PO BID 04/22/23 04/22/23 History semaglutide 0.25 mg or 0.5 mg (2 0.5 mg subcut WK 04/22/23 04/22/23 History mg/3 mL) subcutaneous pen injector (Ozempic) venlafaxine 37.5 mg 0 mg PO QPM 04/22/23 04/22/23 History capsule,extended release 24 hr (Effexor XR) Past Med/Surg History Medical History (Updated 04/22/23 @ 17:05 by Marilin Rivas MD) Anxiety Asthma exercise induced--inhaler prn Colon polyps Crohns disease Diabetes mellitus, type 2 on trulicity Enlarged heart worked up--found no issues, 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 History of vertebral anomaly, anal atresia, tracheo-esophageal fistula, esophageal atresia, renal anomaly, and radial dysplasia (VATER) association Latent tuberculosis Sleep apnea cpap Surgical History History of bowel resection 2000 @ [facility] pt states 4 ft of small intestine and ileum removed History of colonoscopy last 02/2020 @ [facility] History of herniorrhaphy x3 History of ileostomy History of major abdominal surgery "lateral release" d/t hernias History of reversal of ileostomy History of tooth extraction History of wisdom tooth extraction Hx of vasectomy S/P appendectomy Family History Grandfather (Maternal) Diabetes Grandfather (Paternal) Family history of reaction to anesthesia 40yrs ago had hiccups after sx (pt does not know what kind of surgery) believes it was general anesthesia---no other information provided Denies family history of Colon cancer Ovarian cancer Prostate cancer Myocardial infarction Breast cancer Ulcerative colitis Social History Smoking Status: Never smoker Second Hand Exposure: No; Do You Dip or Chew Tobacco: No; Hx Alcohol Use: No Hx Substance Use: No Preferred Language: [place] Citizen Communication Ability: Effective Visual Impairment: No Limitations Hearing Ability: Normal Lean Leader Required: No Beliefs That Will Affect Care: None marital status: Current Living Situation: Spouse Current Living Situation Comment: Lives with current occupational status: 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 Feels Safe at Home: Yes Childhood Exposure to Second-Hand Smoke: No Diet: regular Dental Care, Regularly: Yes Physical Activity Frequency: 1-2 Times per Week Seatbelt Use: always Sunscreen Use: Yes Assistive Devices: CPAP Review of Systems Review of Systems: All systems reviewed & are unremarkable except as noted in HPI & below Physical Exam Constitutional: WD/WN, vitals as above Respiratory: normal respiratory effort, lungs clear to auscultation Cardiovascular: RRR, no murmur, no edema Gastrointestinal (Abdomen): Inspection/Auscultation: abdomen normal to inspection; abdomen not distended Percussion/Palpation: + abdomen tender (RUQ tenderness without rebound), + guarding and abdomen soft; abdomen not rigid Musculoskeletal: no cyanosis or clubbing, extremities motor strength 5/5 Skin: no rashes, warm and dry Neurologic: moves all extremities and awake; not confused Psychiatric: A+Ox3, euthymic affect Genitourinary: no CVA tenderness Results & Data Results & Data Vital Signs (Past 12 Hours) Vital Signs Temp Pulse Pulse Resp BP BP Pulse Ox 04/22/23 13:59 79 16 159/98 H 97 04/22/23 10:17 36 C L 60 18 170/98 H 99 O2 Del Method 04/22/23 13:59 Room Air 04/22/23 10:17 Room Air Laboratory Results Abnormal lab results 04/22/23 04/22/23 Range/Units 10:44 10:44 WBC 12.59 H (4.8-10.8) K/ul Neut # (Auto) 10.40 H (1.40-6.50) K/uL [place] # (Auto) 0.60 H (0.11-0.59) K/uL Sodium 133 L (136-145) mmol/L BUN/Creatinine Ratio 22.9 H (10-20) Glucose 232 H (70-99(Fasting)) mg/dl Total Bilirubin 1.6 H (0.2-1.0) mg/dl Diagnostic Findings ABDOMEN AND PELVIS CT WITH IV CONTRAST CT DOSE: 1510.57 mGy.cm HISTORY: Acute abdominal pain in patient with history of inflammatory bowel disease Abdominal pain TECHNIQUE: Multiaxial CT images of the abdomen and pelvis were performed following the IV administration of 93 cc of Optiray, A dose lowering technique was utilized adhering to the principles of ALARA. COMPARISON STUDY: 06/25/2013 FINDINGS: A nonspecific subcarinal lymphadenopathy. Clear lung bases. No free air. The spleen is mildly enlarged, 15.7 cm. The liver is mildly enlarged, 21 cm in length. Hepatic steatosis. Patency of the hepatic and portal veins. Distended gallbladder with cholelithiasis, borderline wall thickening and trace pericholecystic edema. 3 mm calcification noted on image 168 series 3 which appears to be within the distal common bile duct. No significant biliary ductal dilation. Unremarkable pancreas and adrenal glands. 3 mm nonobstructing calculus of the interpolar right kidney. There is no hydronephrosis. Decompressed urinary bladder with mild wall thickening. Mild prostatomegaly. Surgical clips of the scrotum. Borderline enlarged inguinal lymph nodes. No abdominal aortic aneurysm. No bowel obstruction. Possible chronic perianal fistula on image 409 series 3. No abscess. There is mild nonspecific circumferential wall thickening of the inferior rectum with subcentimeter perirectal lymph nodes. Colonic diverticulosis. Postoperative changes of right hemicolectomy with ileocolic anastomosis. Postoperative changes of the anterior abdominal wall. No acute fracture. IMPRESSION: 1. Cholelithiasis with CT evidence of mild acute cholecystitis. 2. Choledocholithiasis without biliary ductal dilation. 3. Mild rectal wall thickening with adjacent subcentimeter perirectal lymph nodes may represent a nonspecific proctitis, possibly related to the patient's chronic inflammatory bowel disease. This finding could be correlated with colonoscopy. 4. Prior right hemicolectomy with ileocolic anastomosis. 5. No bowel obstruction or pneumoperitoneum. 6. Right nephrolithiasis without hydronephrosis. 7. Hepatosplenomegaly with hepatic steatosis. Medications Administered ER Medications Given: Normal saline 1000ml bolus Acetaminophen 1000mg IV Ceftriaxone 2000mg IV Code Status & VTE Plan Code Status Full VTE Prophylaxis Plan VTE Prophylaxis will be ordered: Yes PG Care Time/CCT Total # of Minutes Spent Total Time Spent with Patient: Total time spent is greater than 50% in coordination of care (as documented) at patient's floor/unit and/or counseling patient: Coding Level of Care Code 07937 INT INP/OBS CARE MIN Diagnoses Choledocholithiasis with acute cholecystitis K80.42 Crohns disease K50.90 Obstructive sleep apnea G47.33 Depression F32.9 Diabetes mellitus E11.9
[2023-04-22 14:54] LABS: Appearance Urine Clear (Clear); Bilirubin Urine Negative (Negative); Blood Urine Negative (Negative); Color Urine Yellow; Glucose Urine UA 3+ (Negative); Ketones Urine Trace (Negative); Leukocyte Esterase Urine Negative (Negative); Nitrite Urine Negative (Negative); Protein Urine Negative (Negative); Specific Gravity Urine 1.044 (1.000-1.030); Urobilinogen Urine Negative (Negative); pH Urine 5.5 (4.5-7.5)
[2023-04-22] MEDS ORDERED: HYDROmorphone INJ 0.5 MG/0.5 ML SYR IV PRN (15:21)
[2023-04-22] MEDS: HYDROmorphone INJ 0.5 MG/0.5 ML SYR IV PRN ×2 (16:21→20:07)
[2023-04-22] MEDS: PLASMA-LYTE A 1,000 ML IV SCH ×2 (16:35→22:28)
[2023-04-22] MEDS ORDERED: ACETAMINOPHEN 1,000 MG/100 ML VIAL IV PRN (18:01)
[2023-04-22] MEDS ORDERED: DEXTROSE 50% 50 ML SYRINGE IV PRN (21:49)
[2023-04-22] MEDS ORDERED: CARBOHYDRATES FOR HYPOGLYCEMIA PO PRN (21:49)
[2023-04-22] MEDS ORDERED: GLUCAGON FOR INJ 1 MG VIAL SQ PRN (21:49)
[2023-04-22] MEDS ORDERED: GLUCOSE 40% GEL 15 GM TUBE PO PRN (21:49)
[2023-04-22] MEDS ORDERED: GLUCOSE 10 TAB/TUBE PO PRN (21:49)
[2023-04-22] MEDS ORDERED: INSULIN ASPART PER UNIT CHARGE SC ONE (21:57)
[2023-04-22] MEDS: metroNIDAZOLE 500 MG/100 ML BAG IV SCH (22:30)
[2023-04-23] MEDS ORDERED: Nursing to Pharmacy Communication SCH ×2 (00:30→15:15)
[2023-04-23] MEDS: INSULIN ASPART PER UNIT CHARGE SC SCH ×4 (05:12→21:04)
[2023-04-23] MEDS: PLASMA-LYTE A 1,000 ML IV SCH ×2 (05:13→15:06)
[2023-04-23] MEDS ORDERED: ONDANSETRON INJ 2 MG/ML 2 ML VIAL IV PRN ×2 (06:25→13:27)
[2023-04-23] MEDS ORDERED: INSULIN ASPART PER UNIT CHARGE SC SCH (07:30)
[2023-04-23 07:37] LABS: Basophils # (auto) 0.03 K/uL (0.00-0.20); Basophils % (auto) 0.3 %; Eosinophils # (auto) 0.07 K/uL (0.00-0.50); Eosinophils % (auto) 0.6 %; Hematocrit (blood only) 42.8 % (42.0-52.0); Hemoglobin 15.6 g/dl (14.0-18.0); Immature Granulocytes # (auto) 0.05 K/uL (0.01-0.20); Immature Granulocytes % (auto) 0.4 %; Lymphocytes # (auto) 1.74 K/uL (1.20-3.40); Lymphocytes % (auto) 14.8 %; Mean Corpuscular Hemoglobin 32.2 pg (25.0-34.0); Mean Corpuscular Hgb Conc 36.4 g/dL (32.0-36.0); Mean Corpuscular Volume 88.2 fL (80.0-100.0); Mean Platelet Volume 9.5 fL (9.4-12.4); Monocytes # (auto) 1.24 K/uL (0.11-0.59); Monocytes % (auto) 10.5 %; Neutrophils # (auto) 8.65 K/uL (1.40-6.50); Neutrophils % (auto) 73.4 %; Platelet Count 228 K/uL (130-400); RDW Coefficient of Variation 12.7 % (11.5-14.5); RDW Standard Deviation 40.8 fL (36.4-46.3); Red Blood Count 4.85 M/uL (4.70-6.10); White Blood Count 11.78 K/ul (4.8-10.8)
[2023-04-23 07:48] LABS: Albumin Globulin Ratio 1.3 (0.9-2); Albumin Level 3.9 gm/dl (3.4-5.0); BUN Creatinine Ratio 13.9 (10-20); Bilirubin,Total 1.7 mg/dl (0.2-1.0); Calcium 8.8 mg/dl (8.6-10.3); Creatinine Clr Calc Pharmacy 149.1 ml/min; Est GFR (African American) 122.6 ml/min; Est GFR (Non-African American) 105.8 ml/min; Globulin 3.1 gm/dl (2.5-4.0); Potassium 3.9 mmol/L (3.5-5.1)
[2023-04-23] MEDS: metroNIDAZOLE 500 MG/100 ML BAG IV SCH ×3 (08:12→22:47)
[2023-04-23] MEDS ORDERED: INDOMETHACIN 50 MG SUPP PR ONE ×2 (08:36→13:39)
--- NOTE | 2023-04-23 09:09 | Surgery Progress Note ---
Date of Service April 23, 2023 Assessment & Plan (1) Choledocholithiasis with acute cholecystitis: Plan: Patient seen at bedside No complaints , denies abdominal pain, n/v, CP, SOB Passing flatus WBC 11.7 (12) T. Bili 1.7 (1.6) VSS Patient to get a ERCP today, may a clear liquid diet until MN from a surgical stand point , however would follow GI recommendations post ERCP. Patient scheduled for Laparoscopic Cholecystectomy 04/24/23. Attempted to see Mr. Parker however he was in the operating room. I did discuss with gastroenterology and they were able to extract his common bile duct stones. We will plan on laparoscopic cholecystectomy tomorrow Admission and Anticipated Discharge Date Admission Date: April 22, 2023 Subjective patient resting in bed no complaints this AM Review of Systems Constitutional: no fever, no chills and no sweats Respiratory: no dyspnea Cardiovascular: no chest pain Gastrointestinal: no abdominal pain, no bloating, no nausea and no vomiting Genitourinary: no problem reported Physical Exam Physical Exam: alert , oriented , pleasant Constitutional: + obese, cooperative and comfortable; no acute distress Respiratory: normal respiratory effort and able to speak in complete sentences; no respiratory distress Cardiovascular: Rate/Rhythm: regular rate Gastrointestinal (Abdomen): Percussion/Palpation: abdomen soft; abdomen nontender and no guarding Obese abdomen Results & Data Vital Signs (Past 12 Hours) Vital Signs Temp Pulse Resp BP Pulse Ox O2 Del Method 04/23/23 08:02 97.7 F 86 18 115/72 96 Room Air PG Care Time/CCT Total # of Minutes Spent Total Time Spent with Patient: Total time spent is greater than 50% in coordination of care (as documented) at patient's floor/unit and/or counseling patient: Coding Level of Care Code 95085 SUB INP/OBS CARE 2/35MIN Diagnoses Choledocholithiasis with acute cholecystitis K80.42
--- NOTE | 2023-04-23 10:23 | Gastrointestinal Consultation ---
Date of Consultation April 23, 2023 Assessment & Plan (1) Choledocholithiasis with acute cholecystitis: Patient is a 52 years old male with history of Crohn's disease status post hemicolectomy and ileal colonic resection, doing well from his IBD standpoint on Remicade and mercaptopurine. He had right upper quadrant abdominal pain, nausea and vomiting along with findings of elevated total bilirubin, CT evidence of choledocholithiasis and cholecystitis. - NPO for ERCP in OR by Dr. Lawler today - Continue IV antibx coverage - IVF support - Cholecystectomy per surgery scheduled 04/24 - Trend LFTs - Further recs after ERCP completed Supervising Physician Co-Signing Physician Notes I performed a history and physical examination of the patient today, including specifically on physical exam - soft abdomen. I have discussed the patient's management with the advanced practitioner. Please refer to the nurse practitioner's note for the documented findings and plan of care. ERCP for choledocholithiasis Patient was explained in detail regarding risks, benefits, limitations and alternatives of the above endoscopic procedure. Risks of intravenous sedation used for procedure were also explained. Risks include, but not limited to perforation, bleeding, infection, respiratory distress, cardiac arrest and . Patient is also aware about the possibility of missed lesion. Patient's questions were answered. The patient verbalized understanding the information and agreed to undergo the procedure. History of Present Illness Reason for Consultation: Choledocholithiasis Requesting Physician: Dr. Melonie Bailon Attending Physician: Dr. Jamal Lawler History of Present Illness Patient is a 52 years old male with history of Crohn's disease status post ileal resection, SBO, hernia surgery, who presented to the ED yesterday with right upper quadrant abdominal pain. Has associated nausea and vomiting, no fevers or chills. Denies any changes in his bowel habits. He has been doing well from the Crohn's standpoint on Remicade IV and mercaptopurine for 20+ years. On evaluation he was noted to have mild leukocytosis, LFTs with isolated total bilirubin elevation at 1.7, AST, ALT, alkaline phosphatase, lipase normal. CT abdomen and pelvis with contrast showed signs of cholelithiasis and mild acute cholecystitis. He does have choledocholithiasis without biliary ductal dilatation. No signs of bowel obstruction, evidence of right hemicolectomy with ileocolic anastomosis, mild rectal wall thickening suggestive of nonspecific proctitis. He also has signs of hepatosteatosis with hepatosplenomegaly. Allergies Allergy/AdvReac Type Severity Reaction Status Date / Time No Known Drug Allergies Allergy Unknown Verified 04/22/23 12:43 Home Medications Medication Instructions Recorded Confirmed Type infliximab 100 mg intravenous 10 mg IV UD 05/03/19 04/22/23 History solution (Remicade) calcium carbonate 500 mg-vitamin 1 tab PO QPM 06/03/19 04/22/23 History D3 5 mcg (200 unit) tablet (Calcium 500 + D) dexamethasone sodium phos (PF) 10 5 mg IV UD REACTION TO REMICADE 06/03/19 04/22/23 History mg/mL injection kit blood sugar diagnostic #10 ea 04/28/20 04/17/23 Rx blood-glucose meter #1 ea 04/28/20 04/17/23 Rx lancets #100 ea 04/25/21 04/17/23 Rx albuterol sulfate 90 mcg/actuation 2 puff inhalation Q6H PRN Wheezing 10/14/22 04/22/23 Rx aerosol inhaler #8.5 grams blood sugar diagnostic (OneTouch #100 ea 10/14/22 04/17/23 Rx Verio test strips) cyanocobalamin (vitamin B-12) 1,000 mcg IM Q7D #30 mL 10/14/22 04/22/23 Rx 1,000 mcg/mL injection solution mercaptopurine 50 mg tablet 100 mg PO QPM #180 tabs 10/14/22 04/22/23 Rx syringe with needle 3 mL 25 gauge #30 ea 12/18/22 04/17/23 Rx x 1" (BD Luer-Ying Syringe) colesevelam 625 mg tablet (WelChol) 625 mg PO BID 04/22/23 04/22/23 History semaglutide 0.25 mg or 0.5 mg (2 0.5 mg subcut WK 04/22/23 04/22/23 History mg/3 mL) subcutaneous pen injector (Ozempic) venlafaxine 37.5 mg 0 mg PO QPM 04/22/23 04/22/23 History capsule,extended release 24 hr (Effexor XR) Patient History Medical History Anxiety Asthma exercise induced--inhaler prn Colon polyps Crohns disease Diabetes mellitus, type 2 on trulicity Enlarged heart worked up--found no issues, no 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 History of vertebral anomaly, anal atresia, tracheo-esophageal fistula, esophageal atresia, renal anomaly, and radial dysplasia (VATER) association Latent tuberculosis Sleep apnea cpap Surgical History History of bowel resection 2000 @ [facility] pt states 4 ft of small intestine and ileum removed History of colonoscopy last 02/2020 @ [facility] History of herniorrhaphy x3 History of ileostomy History of major abdominal surgery "lateral release" d/t hernias History of reversal of ileostomy History of tooth extraction History of wisdom tooth extraction Hx of vasectomy S/P appendectomy Family History Grandfather (Maternal) Diabetes Grandfather (Paternal) Family history of reaction to anesthesia 40yrs ago had hiccups after sx (pt does not know what kind of surgery) b elieves it was general anesthesia---no other information provided Denies family history of Colon cancer Ovarian cancer Prostate cancer Myocardial infarction Breast cancer Ulcerative colitis Social History Smoking Status: Never smoker Second Hand Exposure: No; Do You Dip or Chew Tobacco: No; Hx Alcohol Use: No Hx Substance Use: No Preferred Language: Bahraini Communication Ability: Effective Visual Impairment: No Limitations Hearing Ability: Normal Denture Processor Required: No Beliefs That Will Affect Care: None marital status: Current Living Situation: Spouse Current Living Situation Comment: Lives with current occupational status: 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 Feels Safe at Home: Yes Childhood Exposure to Second-Hand Smoke: No Diet: regular Dental Care, Regularly: Yes Physical Activity Frequency: 1-2 Times per Week Seatbelt Use: always Sunscreen Use: Yes Assistive Devices: None Review of Systems Review of Systems: All systems reviewed & are unremarkable except as noted in HPI & below Physical Exam Constitutional: WD/WN, vitals as above well groomed, cooperative and comfortable Eyes: PERRL, conjunctivae normal, anicteric sclerae ENMT: external ear and nose normal, oropharynx normal Respiratory: normal respiratory effort, lungs clear to auscultation Cardiovascular: RRR, no murmur, no edema Gastrointestinal (Abdomen): RUQ abd pain, bowel sounds hypoactive, soft Skin: no rashes, warm and dry no jaundice Neurologic: Motor/Sensory: no asterixis Psychiatric: A+Ox3, euthymic affect Lymphatic: no lymphedema Results & Data Vital Signs (Past 12 Hours) Vital Signs Temp Pulse Resp BP Pulse Ox O2 Del Method 04/23/23 08:02 36.5 C 86 18 115/72 96 Room Air
[2023-04-23] MEDS ORDERED: GLYCOPYRROLATE 0.2 MG/ML VIAL ONE (12:52)
[2023-04-23] MEDS ORDERED: ROCURONIUM BROMIDE 10 MG/ML 5 ML VIAL IV ONE (12:52)
[2023-04-23] MEDS ORDERED: LIDOCAINE 2% 2 ML VIAL/AMP(20MG/ML) INFIL ONE ×3 (12:52→13:50)
[2023-04-23] MEDS ORDERED: fentaNYL citrate PF 100 MCG/2 ML VIAL ONE ×2 (12:52)
[2023-04-23] MEDS ORDERED: MIDAZOLAM HCL 1 MG/ML 2ML VIAL ONE (12:52)
[2023-04-23] MEDS ORDERED: ONDANSETRON INJ 2 MG/ML 2 ML VIAL ONE (12:52)
[2023-04-23] MEDS ORDERED: PROPOFOL IV EMULSION 10 MG/ML 20 ML VIAL IV ONE (12:52)
[2023-04-23] MEDS ORDERED: NEOSTIGMINE METHYLSULFATE 1 MG/ML 10ML VIAL ONE (12:52)
[2023-04-23] MEDS ORDERED: DEXAMETHASONE SOD INJ 4 MG/ML VIAL ONE (12:52)
--- NOTE | 2023-04-23 13:03 | History & Physical Bridge Note ---
Date of Service April 23, 2023 History & Physical Bridge Note I have examined the patient, reviewed the History & Physical and in the interval since the performance of the History & Physical I have noted the following changes of clinical significance: no changes noted
--- NOTE | 2023-04-23 13:26 | Anesthesiology Consultation ---
Date of Service April 23, 2023 Assessment & Plan Chart Review Chart Review: Acceptable Risk for Surgery and Patient NOT seen in Pre Admission Testing Consults Requested none ASA ASA3 Proposed Anesthesia Anesthesia Type: General Risk / Benefits Reviewed With: PT / POA / Parent / Guardian, Accepts Plan and Informed Consent Obtained History Surgery Operation Date: 04/23/23 13:30 Proposed Procedures p Endoscopic Retrograde Cholangiopancreato - Jamal Lawler MD Operation Date: 04/24/23 09:05 Proposed Procedures p Laparoscopic Cholecystectomy - Sagar Magallanes DO Height/Weight Height: 6 ft Weight: 108.3 kg Allergies Allergy/AdvReac Type Severity Reaction Status Date / Time No Known Drug Allergies Allergy Unknown Verified 04/22/23 12:43 Medications Home Medications Medication Instructions Recorded Confirmed Last Taken infliximab 100 mg intravenous 10 mg IV UD 05/03/19 04/22/23 04/18/23 solution (Remicade) calcium carbonate 500 mg-vitamin 1 tab PO QPM 06/03/19 04/22/23 04/21/23 D3 5 mcg (200 unit) tablet (Calcium 500 + D) dexamethasone sodium phos (PF) 10 5 mg IV UD REACTION TO REMICADE 06/03/19 04/22/23 04/18/23 mg/mL injection kit blood sugar diagnostic #10 ea 04/28/20 04/17/23 Unknown blood-glucose meter #1 ea 04/28/20 04/17/23 Unknown lancets #100 ea 04/25/21 04/17/23 Unknown albuterol sulfate 90 mcg/actuation 2 puff inhalation Q6H PRN Wheezing 10/14/22 04/22/23 04/21/23 aerosol inhaler #8.5 grams blood sugar diagnostic (OneTouch #100 ea 10/14/22 04/17/23 Unknown Verio test strips) cyanocobalamin (vitamin B-12) 1,000 mcg IM Q7D #30 mL 10/14/22 04/22/23 04/17/23 1,000 mcg/mL injection solution mercaptopurine 50 mg tablet 100 mg PO QPM #180 tabs 10/14/22 04/22/23 04/21/23 syringe with needle 3 mL 25 gauge #30 ea 12/18/22 04/17/23 Unknown x 1" (BD Luer-Ying Syringe) colesevelam 625 mg tablet (WelChol) 625 mg PO BID 04/22/23 04/22/23 04/21/23 semaglutide 0.25 mg or 0.5 mg (2 0.5 mg subcut WK 04/22/23 04/22/23 04/14/23 mg/3 mL) subcutaneous pen injector (Ozempic) venlafaxine 37.5 mg 0 mg PO QPM 04/22/23 04/22/23 3 Months Ago capsule,extended release 24 hr ~01/20/23 (Effexor XR) Active Medications Generic Name Dose Route Start Last Admin Trade Name Freq PRN Reason Stop Dose Admin Hydromorphone HCl 0.5 mg 04/22/23 15:21 04/22/23 20:07 Hydromorphone Inj 0.5 Mg/0.5 Ml Syr IV 05/06/23 15:20 0.5 mg Q3H PRN Administration Pain Parenteral Electrolytes 1,000 mls @ 125 mls/hr 04/22/23 14:15 04/23/23 11:43 Plasma-Lyte A Ph 7.4 IV 04/23/23 22:14 0 mls/hr .Q8H BLANCA Infusion Acetaminophen 1,000 mg in 100 mls @ 400 mls/hr 04/22/23 18:01 04/23/23 06:21 Ofirmev IV 04/25/23 18:00 Infused Q8H PRN Infusion Pain or fever Metronidazole 500 mg in 100 mls @ 100 mls/hr 04/22/23 23:30 04/23/23 09:14 Flagyl IV 05/02/23 23:29 Infused Q8H BLANCA Infusion Protocol Insulin Aspart 0 units 04/23/23 06:00 04/23/23 12:12 Insulin Aspart Per Unit Charge SC 05/23/23 05:59 Not Given Q6 BLANCA NPO Date Last Intake of Fluids: 04/22/23 Time Last Intake of Fluids: 23:55 Date Last Intake of Solids: 04/22/23 Time Last Intake of Solids: 23:55 Past Medical History Medical History Anxiety Asthma exercise induced--inhaler prn Colon polyps Crohns disease Diabetes mellitus, type 2 on trulicity Enlarged heart worked up--found no issues, 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 History of vertebral anomaly, anal atresia, tracheo-esophageal fistula, esophageal atresia, renal anomaly, and radial dysplasia (VATER) association Latent tuberculosis Sleep apnea cpap Exercise / Class Metabolic Activity III < 4 Walking/Shop/Light housework Past Family History Family History Grandfather (Maternal) Diabetes Grandfather (Paternal) Family history of reaction to anesthesia 40yrs ago had hiccups after sx (pt does not know what kind of surgery) believes it was general anesthesia---no other information provided Denies family history of Colon cancer Ovarian cancer Prostate cancer Myocardial infarction Breast cancer Ulcerative colitis Past Surgical History Surgical History History of bowel resection 2000 @ [facility] pt states 4 ft of small intestine and ileum removed History of colonoscopy last 02/2020 @ [facility] History of herniorrhaphy x3 History of ileostomy History of major abdominal surgery "lateral release" d/t hernias History of reversal of ileostomy History of tooth extraction History of wisdom tooth extraction Hx of vasectomy S/P appendectomy Past Anesthesia History No Hx of Anesthesia Complications and No Family Hx of Anesthesia Complications History of PONV No Hx of PONV and No Hx of Motion Sickness Social History Smoking Status: Never smoker Do You Dip or Chew Tobacco: No Hx Alcohol Use: No Hx Substance Use: No substance use type: does not use Review of Systems ROS Unobtainable: All systems reviewed & are unremarkable except as noted in HPI & below Physical Exam Vital Signs Last Vital Signs Temp 37.3 C 04/23/23 12:46 Pulse 86 04/23/23 12:46 Resp 18 04/23/23 12:46 BP 146/104 H 04/23/23 12:46 Pulse Ox 97 04/23/23 12:46 O2 Del Method Room Air 04/23/23 12:46 Constitutional no acute distress ENMT Mouth: no TMJ abnormality Thyromental Distance: > or= 3.5 Finger Breadths Mallampati Class: IV Mouth / Teeth: 1. chip Neck normal visual inspection and trachea midline; neck extension not limited Respiratory normal respiratory effort Auscultation: lungs clear to auscultation bilaterally Cardiovascular Rate/Rhythm: regular rate and regular rhythm Heart Sounds: no murmur Musculoskeletal Spine: normal cervical ROM Extremities: full ROM of extremities Neurologic moves all extremities Psychiatric Orientation: alert and oriented x 3 Testing Laboratory Results 04/23/23 06:58 04/23/23 06:58 Urine Color Yellow 04/22/23 14:01 Urine Appearance Clear (Clear) 04/22/23 14:01 Urine pH 5.5 (4.5-7.5) 04/22/23 14:01 Ur Specific [place] 1.044 (1.000-1.030) H 04/22/23 14:01 Urine Protein Negative (Negative) 04/22/23 14:01 Urine Glucose (UA) 3+ (Negative) H 04/22/23 14:01 Urine Ketones Trace (Negative) H 04/22/23 14:01 Urine Nitrite Negative (Negative) 04/22/23 14:01 Ur Leukocyte Esterase Negative (Negative) 04/22/23 14:01 04/23/23 04/23/23 04/23/23 12:50 11:47 05:04 POC Glucose 148 H 148 H 164 H
[2023-04-23] MEDS ORDERED: ATROPINE SULFATE 0.1 MG/ML 10ML SYR IV PRN (13:27)
[2023-04-23] MEDS ORDERED: ePHEDrine sulfate 50 MG/ML AMP IV PRN (13:27)
[2023-04-23] MEDS ORDERED: fentaNYL citrate PF 100 MCG/2 ML VIAL IV PRN (13:27)
[2023-04-23] MEDS ORDERED: SUCCINYLCHOLINE CHLORIDE 20 MG/ML 10 ML VIAL IV ONE (13:43)
--- NOTE | 2023-04-23 13:54 | Operative Report ---
Post Operative Report Pre & Post Diagnosis Operation Date: 04/24/23 09:05 <No data on this case meets the specified criteria> I identified the patient and participated in the time-out.: Yes Procedure Operation Date: 04/24/23 09:05 <No data on this case meets the specified criteria> Surgeon Jamal Lawler MD Strike Out Machine Operator None Estimated Blood Loss 0 Findings See Below (CBD stones removed, stent placed) Specimens None Description of Procedure ERCP I attest to the content of the Intraoperative Record and any orders documented therein. Any exceptions are noted below.
--- NOTE | 2023-04-23 13:59 | GI REPORT ---
Patient Name: Musa Parker Procedure Date: 04/23/2023 12:52 PM Date of : 1970 Admit Type: Inpatient Age: 52 Gender: Male Attending MD: Jamal Lawler MD, Procedure: ERCP Providers: Jamal Lawler MD Referring MD: Melonie Bailon Md Indications: Bile duct stone on Computed Tomogram Scan, For therapy of bile duct stone(s) Medicines: General Anesthesia Complications: No immediate complications. Estimated Blood Loss: Estimated blood loss: none. Procedure: Pre-Anesthesia Assessment: - Prior to the procedure, a History and Physical was performed, and patient medications, allergies and sensitivities were reviewed. The patient's tolerance of previous anesthesia was reviewed. - The risks and benefits of the procedure and the sedation options and risks were discussed with the patient. All questions were answered and informed consent was obtained. - Patient identification and proposed procedure were verified prior to the procedure by the physician and the nurse. The procedure was verified in the procedure room. - Pre-procedure physical examination revealed no contraindications to sedation. After obtaining informed consent, the scope was passed under direct vision. Throughout the procedure, the patient's blood pressure, pulse, and oxygen saturations were monitored continuously. The Duodenoscope was introduced through the mouth, and advanced to the duodenum and used to inject contrast into the bile duct. The ERCP was accomplished without difficulty. The patient tolerated the procedure well. Findings: The nozzle worker film was normal. The esophagus was successfully intubated under direct vision. The scope was advanced to a normal major papilla in the descending duodenum without detailed examination of the pharynx, larynx and associated structures, and upper GI tract. The upper GI tract was grossly normal. A 0.035 inch straight standard wire was passed into the biliary tree. The short-nosed traction sphincterotome was passed over the guidewire and the bile duct was then deeply cannulated. Contrast was injected. I personally interpreted the bile duct images. Ductal flow of contrast was adequate. Image quality was adequate. Contrast extended to the main bile duct. Opacification of the entire biliary tree except for the gallbladder was successful. The maximum diameter of the ducts was 8 mm. Biliary sphincterotomy was made with a monofilament traction (standard) sphincterotome using ERBE electrocautery. There was no post-sphincterotomy bleeding. The biliary tree was swept with a 12 mm balloon starting at the bifurcation. Sludge was swept from the duct. A few stones were removed. No stones remained. One 10 Fr by 8 cm plastic biliary stent with a single external flap and a single internal flap was placed into the common bile duct. Bile flowed through the stent. The stent was in good position. Indomethacin 100 mg was given via suppository to decrease the risk of post-ERCP pancreatitis (PEP). Impression: - Choledocholithiasis was found. Complete removal was accomplished by biliary sphincterotomy and balloon extraction. - One plastic biliary stent was placed into the common bile duct. Recommendation: - [facility] care. - Repeat ERCP in 2 months to remove stent. Jamal Lawlre MD 04/23/2023 1:59:11 PM This report has been signed electronically. Note Initiated On: 04/23/2023 12:52 PM Number of Addenda: 0 I attest to the content of the Intraoperative Record and orders documented therein, exceptions below {[id number]}
--- NOTE | 2023-04-23 14:15 | Hospitalist Progress Note ---
Date of Service April 23, 2023 Assessment & Plan (1) Choledocholithiasis with acute cholecystitis: Plan: Ceftriaxone + metronidazole Now s/p ECRP with removal of stone and insertion of stent Appreciate GI Consult surgery for eventual cholecystectomy Repeat ERCP in 2 months for stent removal (2) Crohns disease: Plan: Will hold all medications at this time. Recently had Remicade. (3) Obstructive sleep apnea: Plan: CPAP HS - patient to bring in his own (4) Depression: Plan: Currently not taking venlafaxine (5) Diabetes mellitus: Plan: HbA1C 5.8 [04/03] On Ozempic as outpatient, takes on a Friday therefore really shouldn't require insulin although he has 3+ glucose in his urine and glucose 232 on ER labs therefore suspect he is a low glucosylation rate and will prescribe Novolog for correction only Novolog: --Goal BSG Range: Low 110 mg/dL, High 140 mg/dL --Correction Factor: 45 mg/dL/unit No carb ratio --BSGs ACHS if eating, q6h if npo Plan VTE Prophylaxis - deferred pending ERCP/surgery decision Diet - NPO pending possible ERCP today Disposition - continue hospitalization, hopefuly d/c in the next 24-48 hrs Admission and Anticipated Discharge Date Admission Date: April 22, 2023 Subjective patient seen and examined, scheduled for ercp today Review of Systems Review of Systems: All systems reviewed are negative, apart from the ones contained in the history. Physical Exam Physical Exam: The patient is awake, alert and oriented 3, well developed and well nourished, normocephalic and atraumatic, lying in bed and in no acute distress. HEENT--PERRL, EOMI, mucous membranes and oropharynx mildly dry Neck--supple. No JVD. No bruits. Thyroid normal, trachea midline, no adenopathy. Heart--normal S1 and S2. No murmurs, rubs or gallops. Lungs--clear bilaterally, no respiratory distress, no accessory muscle use. Abdomen--normal bowel sounds and soft. Mild epigastric and left sided abdominal pain Extremities--no cyanosis or clubbing. No edema. Dermatologic--normal skin turgor, normal color, no abnormal lymph nodes, no rash. Neurologic--cranial nerves II through XII grossly intact. Rheumatologic--normal range of motion. Psychiatric--normal affect. Results & Data Results & Data Vital Signs (Past 12 Hours) Vital Signs Temp Pulse Resp BP Pulse Ox O2 Del Method 04/23/23 12:46 99.1 F 86 18 146/104 H 97 Room Air 04/23/23 08:02 97.7 F 86 18 115/72 96 Room Air PG Care Time/CCT Total # of Minutes Spent Total Time Spent with Patient: Total time spent is greater than 50% in coordination of care (as documented) at patient's floor/unit and/or counseling patient: Coding Level of Care Code 69024 SUB INP/OBS CARE 2/35MIN Diagnoses Choledocholithiasis with acute cholecystitis K80.42 Crohns disease K50.90 Obstructive sleep apnea G47.33 Depression F32.9 Diabetes mellitus E11.9 Time Spent (min) 35
--- NOTE | 2023-04-23 14:31 | Anesthesiology Progress Note ---
Date of Service April 23, 2023 Anesthesia Post Procedure Vital Signs Vital Signs: Temp Pulse Pulse Resp BP Pulse Ox O2 Del Method 04/23/23 14:20 84 18 125/81 95 Oxymask 04/23/23 14:10 89 18 125/82 94 Oxymask 04/23/23 14:00 36.0 C L 94 H 14 118/80 95 Oxymask 04/23/23 12:46 37.3 C 86 18 146/104 H 97 Room Air 04/23/23 08:02 36.5 C 86 18 115/72 96 Room Air 04/22/23 21:00 Room Air 04/22/23 20:16 36.7 C 74 16 157/83 H 96 Room Air 04/22/23 18:01 37.0 C 77 18 167/98 H 95 Room Air 04/22/23 18:01 37.0 C 77 18 167/98 H 95 Room Air 04/22/23 17:00 72 16 136/110 H 94 04/22/23 15:00 78 16 162/104 H 96 Room Air O2 Flow Rate 04/23/23 14:20 2 04/23/23 14:10 4 04/23/23 14:00 4 04/23/23 12:46 04/23/23 08:02 04/22/23 21:00 04/22/23 20:16 04/22/23 18:01 04/22/23 18:01 04/22/23 17:00 04/22/23 15:00 Pain Intensity Abdomen: Pain Intensity: 2 Right Abdomen: Pain Intensity: 1 Transfer of Care Handoff Completed per policy Notes Mental Status: alert / awake / arousable Patient Amnestic to Procedure: Yes Nausea / Vomiting: adequately controlled Pain: adequately controlled Airway Patency, RR, SpO2: stable & adequate BP & HR: stable & adequate Hydration State: stable & adequate Anesthetic Complications: no major complications apparent and Pt Satisfied with anesthetic care
[2023-04-23] MEDS: cefTRIAXone SODIUM 2,000 MG in DEXTROSE 5 % MINI-B 50 ML IV SCH (14:50)
--- NOTE | 2023-04-23 14:54 | Fluoroscopy Report ---
[place] ERCP biliary ductal CLINICAL HISTORY: ERCP IN OR COMPARISON STUDY: CT of the abdomen and pelvis April 22, 2023. FLUOROSCOPY TIME: 39 seconds. Ka, r: 31.02 mGy FLUOROSCOPIC IMAGES: 3 FINDINGS: Fluoroscopy was provided during ERCP. The common bile duct was cannulated. Common bile duct stent was placed. Stent is properly positioned. IMPRESSION: Fluoroscopy provided during ERCP with placement of a common bile duct stent. ACT 112: Negative or not required by law. Electronically signed by: Ramiro Acosta M.D. 04/23/2023 2:53 PM
[2023-04-24] MEDS ORDERED: Nursing to Pharmacy Communication SCH ×2 (07:00→12:30)
[2023-04-24] MEDS ORDERED: ONDANSETRON INJ 2 MG/ML 2 ML VIAL ONE (07:40)
[2023-04-24] MEDS ORDERED: PROPOFOL IV EMULSION 10 MG/ML 20 ML VIAL IV ONE (07:40)
[2023-04-24] MEDS ORDERED: DEXAMETHASONE SOD INJ 4 MG/ML VIAL ONE (07:40)
[2023-04-24] MEDS ORDERED: LIDOCAINE 2% 2 ML VIAL/AMP(20MG/ML) INFIL ONE ×2 (07:40→07:42)
[2023-04-24] MEDS ORDERED: MIDAZOLAM HCL 1 MG/ML 2ML VIAL ONE (07:41)
[2023-04-24] MEDS ORDERED: fentaNYL citrate PF 100 MCG/2 ML VIAL ONE (07:41)
[2023-04-24] MEDS ORDERED: ROCURONIUM BROMIDE 10 MG/ML 5 ML VIAL IV ONE ×10 (07:42→09:16)
[2023-04-24] MEDS: INSULIN ASPART PER UNIT CHARGE SC SCH ×5 (07:55→21:33)
[2023-04-24 08:16] LABS: Basophils # (auto) 0.04 K/uL (0.00-0.20); Basophils % (auto) 0.3 %; Eosinophils # (auto) 0.25 K/uL (0.00-0.50); Eosinophils % (auto) 1.8 %; Hematocrit (blood only) 46.6 % (42.0-52.0); Hemoglobin 16.8 g/dl (14.0-18.0); Immature Granulocytes # (auto) 0.04 K/uL (0.01-0.20); Immature Granulocytes % (auto) 0.3 %; Lymphocytes # (auto) 2.05 K/uL (1.20-3.40); Lymphocytes % (auto) 14.5 %; Mean Corpuscular Hemoglobin 32.7 pg (25.0-34.0); Mean Corpuscular Hgb Conc 36.1 g/dL (32.0-36.0); Mean Corpuscular Volume 90.7 fL (80.0-100.0); Mean Platelet Volume 9.6 fL (9.4-12.4); Monocytes # (auto) 1.73 K/uL (0.11-0.59); Monocytes % (auto) 12.2 %; Neutrophils # (auto) 10.03 K/uL (1.40-6.50); Neutrophils % (auto) 70.9 %; Platelet Count 255 K/uL (130-400); RDW Coefficient of Variation 12.9 % (11.5-14.5); RDW Standard Deviation 42.4 fL (36.4-46.3); Red Blood Count 5.14 M/uL (4.70-6.10); White Blood Count 14.14 K/ul (4.8-10.8)
--- NOTE | 2023-04-24 08:34 | History & Physical Bridge Note ---
Date of Service April 24, 2023 History & Physical Bridge Note I have examined the patient, reviewed the History & Physical and in the interval since the performance of the History & Physical I have noted the following changes of clinical significance: Patient seen. Discussed with Dr. Padron. Stones removed and stent placed. We discussed potential risks which include bleeding, infection, injury to another organ such as bowel, bile leak or bile duct injury, DVT, PE, WI, CVA etc... We also discussed his added risk because of his extensive surgical history as well as being on Remicade. I have answered all of his questions. We will proceed this morning with laparoscopic cholecystectomy.
[2023-04-24 08:38] LABS: Albumin Globulin Ratio 1.2 (0.9-2); BUN Creatinine Ratio 20.3 (10-20); Bilirubin,Total 1.9 mg/dl (0.2-1.0); Calcium 8.8 mg/dl (8.6-10.3); Creatinine Clr Calc Pharmacy 135.9 ml/min; Est GFR (Non-African American) 101.8 ml/min; Globulin 3.4 gm/dl (2.5-4.0); Potassium 3.9 mmol/L (3.5-5.1); Total Protein 7.4 gm/dl (6.0-8.3)
[2023-04-24] MEDS ORDERED: ATROPINE SULFATE 0.1 MG/ML 10ML SYR IV PRN (08:42)
[2023-04-24] MEDS ORDERED: ePHEDrine sulfate 50 MG/ML AMP IV PRN (08:42)
[2023-04-24] MEDS ORDERED: PROMETHAZINE HCL 12.5 MG in SODIUM CHLORIDE 0.9% 50 ML IV PRN (08:42)
--- NOTE | 2023-04-24 08:42 | Anesthesiology Consultation ---
Date of Service April 24, 2023 Assessment & Plan Chart Review Chart Review: Acceptable Risk for Surgery Consults Requested none History Surgery Operation Date: 04/23/23 13:30 Proposed Procedures p Endoscopic Retrograde Cholangiopancreato - Jamal Lawler MD Operation Date: 04/23/23 17:10 Proposed Procedures p Laparoscopic Cholecystectomy - Sagar Magallanes DO Operation Date: 04/24/23 09:05 Proposed Procedures p Laparoscopic Cholecystectomy - Sagar Magallanes DO Height/Weight Height: 6 ft Weight: 108.3 kg Allergies Allergy/AdvReac Type Severity Reaction Status Date / Time No Known Drug Allergies Allergy Unknown Verified 04/22/23 12:43 Medications Home Medications Medication Instructions Recorded Confirmed Last Taken infliximab 100 mg intravenous 10 mg IV UD 05/03/19 04/22/23 04/18/23 solution (Remicade) calcium carbonate 500 mg-vitamin 1 tab PO QPM 06/03/19 04/22/23 04/21/23 D3 5 mcg (200 unit) tablet (Calcium 500 + D) dexamethasone sodium phos (PF) 10 5 mg IV UD REACTION TO REMICADE 06/03/19 04/22/23 04/18/23 mg/mL injection kit blood sugar diagnostic #10 ea 04/28/20 04/17/23 Unknown blood-glucose meter #1 ea 04/28/20 04/17/23 Unknown lancets #100 ea 04/25/21 04/17/23 Unknown albuterol sulfate 90 mcg/actuation 2 puff inhalation Q6H PRN Wheezing 10/14/22 04/22/23 04/21/23 aerosol inhaler #8.5 grams blood sugar diagnostic (OneTouch #100 ea 10/14/22 04/17/23 Unknown Verio test strips) cyanocobalamin (vitamin B-12) 1,000 mcg IM Q7D #30 mL 10/14/22 04/22/23 04/17/23 1,000 mcg/mL injection solution mercaptopurine 50 mg tablet 100 mg PO QPM #180 tabs 10/14/22 04/22/23 04/21/23 syringe with needle 3 mL 25 gauge #30 ea 12/18/22 04/17/23 Unknown x 1" (BD Luer-Ying Syringe) colesevelam 625 mg tablet (WelChol) 625 mg PO BID 04/22/23 04/22/23 04/21/23 semaglutide 0.25 mg or 0.5 mg (2 0.5 mg subcut WK 04/22/23 04/22/23 04/14/23 mg/3 mL) subcutaneous pen injector (Ozempic) venlafaxine 37.5 mg 0 mg PO QPM 04/22/23 04/22/23 3 Months Ago capsule,extended release 24 hr ~01/20/23 (Effexor XR) Active Medications Generic Name Dose Route Start Last Admin Trade Name Freq PRN Reason Stop Dose Admin Hydromorphone HCl 0.5 mg 04/22/23 15:21 04/22/23 20:07 Hydromorphone Inj 0.5 Mg/0.5 Ml Syr IV 05/06/23 15:20 0.5 mg Q3H PRN Administration Pain Ceftriaxone Sodium 2,000 mg/ 50 mls @ 100 mls/hr 04/23/23 14:00 04/23/23 15:20 Dextrose IV 05/03/23 13:59 Infused Q24H BLANCA Infusion Protocol Acetaminophen 1,000 mg in 100 mls @ 400 mls/hr 04/22/23 18:01 04/23/23 06:21 Ofirmev IV 04/25/23 18:00 Infused Q8H PRN Infusion Pain or fever Metronidazole 500 mg in 100 mls @ 100 mls/hr 04/22/23 23:30 04/23/23 23:54 Flagyl IV 05/02/23 23:29 Infused Q8H BLANCA Infusion Protocol Lactated Ringer's 1,000 mls @ 0 mls/hr 04/24/23 08:45 04/24/23 08:38 Lr IV 05/24/23 08:44 15 mls/hr .Q0M BLANCA Administration KVO Insulin Aspart 0 units 04/24/23 06:00 04/24/23 07:55 Insulin Aspart Per Unit Charge SC 05/24/23 05:59 1 units Q6 BLANCA Administration NPO Date Last Intake of Fluids: 04/23/23 Time Last Intake of Fluids: 23:55 Date Last Intake of Solids: 04/23/23 Time Last Intake of Solids: 17:30 Past Medical History Medical History Anxiety Asthma exercise induced--inhaler prn Colon polyps Crohns disease Diabetes mellitus, type 2 on trulicity Enlarged heart worked up--found no issues, 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 History of vertebral anomaly, anal atresia, tracheo-esophageal fistula, esophageal atresia, renal anomaly, and radial dysplasia (VATER) association Latent tuberculosis Sleep apnea cpap Past Family History Family History Grandfather (Maternal) Diabetes Grandfather (Paternal) Family history of reaction to anesthesia 40yrs ago had hiccups after sx (pt does not know what kind of surgery) believes it was general anesthesia---no other information provided Denies family history of Colon cancer Ovarian cancer Prostate cancer Myocardial infarction Breast cancer Ulcerative colitis Past Surgical History Surgical History History of bowel resection 2000 @ [facility] pt states 4 ft of small intestine and ileum removed History of colonoscopy last 02/2020 @ [facility] History of herniorrhaphy x3 History of ileostomy History of major abdominal surgery "lateral release" d/t hernias History of reversal of ileostomy History of tooth extraction History of wisdom tooth extraction Hx of vasectomy S/P appendectomy Social History Smoking Status: Never smoker Do You Dip or Chew Tobacco: No Hx Alcohol Use: No Hx Substance Use: No substance use type: does not use Review of Systems Constitutional: no fever, no chills and no sweats Respiratory: no dyspnea Cardiovascular: no chest pain Gastrointestinal: no abdominal pain, no bloating, no nausea and no vomiting Genitourinary (Male): no problem reported Physical Exam Vital Signs Last Vital Signs Temp 36.7 C 04/24/23 08:22 Pulse 90 04/24/23 08:22 Resp 18 04/24/23 08:22 BP 127/83 04/24/23 08:22 Pulse Ox 93 04/24/23 08:22 O2 Del Method Room Air 04/24/23 08:22 O2 Flow Rate 2 04/23/23 14:20 Constitutional WD/WN, vitals as above + obese, well groomed, cooperative and comfortable; no acute distress Eyes PERRL, conjunctivae normal, anicteric sclerae ENMT external ear and nose normal, oropharynx normal Mouth: no TMJ abnormality Thyromental Distance: > or= 3.5 Finger Breadths Mallampati Class: IV Neck normal visual inspection and trachea midline; neck extension not limited Respiratory normal respiratory effort, lungs clear to auscultation normal respiratory effort and able to speak in complete sentences; no respiratory distress Auscultation: lungs clear to auscultation bilaterally Cardiovascular RRR, no murmur, no edema Rate/Rhythm: regular rate and regular rhythm Heart Sounds: no murmur Gastrointestinal (Abdomen) Inspection/Auscultation: abdomen normal to inspection and + abdominal surgical scar; abdomen not distended Percussion/Palpation: abdomen soft; abdomen nontender, no guarding and abdomen not rigid Musculoskeletal no cyanosis or clubbing, extremities motor strength 5/5 Spine: normal cervical ROM Extremities: full ROM of extremities Skin no rashes, warm and dry no jaundice Neurologic moves all extremities and awake; not confused Motor/Sensory: no asterixis Psychiatric A+Ox3, euthymic affect Orientation: alert, oriented x 3 and cooperative Genitourinary no CVA tenderness Lymphatic no lymphedema Testing Laboratory Results 04/24/23 07:59 04/24/23 07:59 Urine Color Yellow 04/22/23 14:01 Urine Appearance Clear (Clear) 04/22/23 14:01 Urine pH 5.5 (4.5-7.5) 04/22/23 14:01 Ur Specific [place] 1.044 (1.000-1.030) H 04/22/23 14:01 Urine Protein Negative (Negative) 04/22/23 14:01 Urine Glucose (UA) 3+ (Negative) H 04/22/23 14:01 Urine Ketones Trace (Negative) H 04/22/23 14:01 Urine Nitrite Negative (Negative) 04/22/23 14:01 Ur Leukocyte Esterase Negative (Negative) 04/22/23 14:01 04/24/23 07:00 POC Glucose 155 H
[2023-04-24] MEDS ORDERED: LACTATED RINGER'S 1,000 ML IV SCH (08:45)
[2023-04-24] MEDS ORDERED: BUPIVACAINE/EPINEPHRINE 0.5% MPF 1:200,000 30 ML VIAL ONE (08:45)
[2023-04-24] MEDS: metroNIDAZOLE 500 MG/100 ML BAG IV SCH ×3 (09:00→23:45)
[2023-04-24] MEDS ORDERED: SUGAMMADEX SODIUM 200 MG/2 ML VIAL IV ONE (09:17)
[2023-04-24] MEDS ORDERED: PHENYLEPHRINE 100MCG/ML 10ML SYR ONE (09:18)
[2023-04-24] MEDS ORDERED: MoRPHine SULFATE 2 MG/ML CARP ONE (10:03)
--- NOTE | 2023-04-24 10:24 | Communication Note ---
Date of Service: April 24, 2023 Pt not in room, in OR for scheduled lap cholecystectomy. Chart reviewed. VS stable, labs wo anemia and no significant change in LFTs. Plan for repeat ERCP in 3 month's time to remove CBD stent. Diet advancement per Surgery after cholecystectomy Pls recall GI prn
[2023-04-24] MEDS ORDERED: HYDROmorphone INJ 2 MG/ML SYR/VIAL ONE (10:36)
--- NOTE | 2023-04-24 11:45 | Operative Report ---
PG Post Operative Report Pre & Post Diagnosis Operation Date: 04/24/23 09:05 Pre-Op Diagnosis: Choledocholithiasis with acute cholecystitis Post-Op Diagnosis: Choledocholithiasis with acute cholecystitis;extensive adhesions I identified the patient and participated in the time-out.: Yes Procedure Operation Date: 04/24/23 09:05 Actual Procedures p Laparoscopic Cholecystectomy(Not Applicable) - Sagar Magallanes DO (please use difficulty modifier) Surgeon Sagar Magallanes DO Glass Setter lisbet Rain Estimated Blood Loss 15 Findings See Below (CBD stones removed, stent placed) Specimens gallbladder Description of Procedure After informed consent was obtained the patient was taken to the operating room and placed in supine position. After successful intubation the abdomen was sterilely prepped and draped in usual fashion. I began in the left upper quadrant by making a vertical incision with an 11 blade scalpel. This was carried down through the soft tissue using cautery. Anterior fascia was opened using cautery and two #0 Vicryl stay sutures were placed. The muscle was split. Peritoneum was elevated with hemostats and incised under direct vision using a Metzenbaum scissor. A finger sweep was performed. There were a lot of palpable adhesions inferiorly and medially. I was able to get a 12 mm [address] trocar in place and insufflated the abdomen. I inserted the laparoscope. The entire lower half of the abdomen was inaccessible due to massive amount of adhesions. In fact there were adhesions everywhere except for maybe the upper one quarter of the abdomen. I was able to squeeze underneath the falciform ligament with the camera and there was a small amount of space in the right upper quadrant. I was able to place 2 right upper quadrant 5 mm trocars and then a subxiphoid 12 mm trocar. The dissection was tedious. The gallbladder was grossly inflamed and visualization was quite difficult. I began by draining the gallbladder with a gallbladder needle so that we could grasp it. We then did grasped and elevate it superiorly. I was able to use primarily blunt dissection to free it from transverse colon inferior to it as well as duodenum. Using primarily blunt dissection I was able to eventually identify the cystic duct. It was a little too large for the clip laborer cheesemaking and I therefore used a KAITLIN brown cartridge linear stapler to transect the cystic duct. I was able to identify the cystic artery which I skeletonized clipped and divided. I then continued to use traction and cautery to remove the gallbladder from the gallbladder fossa. It was very intrahepatic. A small hole was made in the gallbladder which did release some black stones into the right upper quadrant. Once I was finally able to get the gallbladder off of the gallbladder fossa I placed it into an Endo Catch bag. I used a large tip suction device as well as a stone forcep to remove all visible gallstones. There was adequate hemostasis. We did thoroughly irrigate the right upper quadrant. I had to extend the subxiphoid incision and able to get the gallbladder and stones out. At the end of procedure there was no evidence of a bile leak and there was adequate hemostasis. I closed the fascia of the subxiphoid as well as left upper quadrant port using 0 Vicryl in [id number] fashions. All the wounds were irrigated and closed using 4-0 Monocryl. Marcaine with epinephrine was injected around the incisions for postoperative analgesia and skin glue used as a dressing. The patient was awakened extubated and transferred recovery in stable condition. My nurse practitioner was present for the entire case was instrumental in running the camera as well as providing exposure for my dissection assisting with wound closure and dressing placement. This was an extremely difficult case from beginning to end please use difficulty modifier. I attest to the content of the Intraoperative Record and any orders documented therein. Any exceptions are noted below.
[2023-04-24] MEDS: HYDROmorphone INJ 2 MG/ML SYR/VIAL IV PRN ×2 (11:46→12:00)
[2023-04-24] MEDS ORDERED: oxyCODONE/ACETAMINOPHEN 5mg/325mg TAB PO PRN ×2 (12:20)
[2023-04-24] MEDS ORDERED: ACETAMINOPHEN 325 MG TAB PO PRN (12:20)
--- NOTE | 2023-04-24 13:22 | Anesthesiology Progress Note ---
Date of Service April 24, 2023 Anesthesia Post Procedure Vital Signs Vital Signs: Temp Pulse Pulse Resp BP Pulse Ox O2 Del Method 04/24/23 12:55 88 18 140/90 Nasal Cannula 04/24/23 12:34 37.1 C 83 16 132/88 93 Nasal Cannula 04/24/23 11:30 86 14 122/78 98 Oxymask 04/24/23 12:10 37.2 C 89 18 130/83 95 Nasal Cannula 04/24/23 12:00 91 H 18 136/83 95 Nasal Cannula 04/24/23 11:50 84 15 121/79 95 Nasal Cannula 04/24/23 11:40 85 17 114/85 95 Nasal Cannula 04/24/23 11:20 88 14 122/75 95 Oxymask 04/24/23 11:15 36.0 C L 87 16 121/76 94 Oxymask 04/24/23 08:22 36.7 C 90 18 127/83 93 Room Air 04/24/23 07:05 36.4 C L 74 16 143/81 H 95 Room Air 04/23/23 22:52 CPAP 04/23/23 21:07 36.3 C L 72 16 102/62 95 Room Air 04/23/23 14:55 36.7 C 70 18 128/77 97 Room Air 04/23/23 14:30 36.5 C 86 15 114/74 94 Room Air 04/23/23 14:20 84 18 125/81 95 Oxymask 04/23/23 14:10 89 18 125/82 94 Oxymask 04/23/23 14:00 36.0 C L 94 H 14 118/80 95 Oxymask O2 Flow Rate 04/24/23 12:55 2 04/24/23 12:34 2 04/24/23 11:30 3 04/24/23 12:10 2 04/24/23 12:00 2 04/24/23 11:50 2 04/24/23 11:40 2 04/24/23 11:20 6 04/24/23 11:15 6 04/24/23 08:22 04/24/23 07:05 04/23/23 22:52 04/23/23 21:07 04/23/23 14:55 04/23/23 14:30 04/23/23 14:20 2 04/23/23 14:10 4 04/23/23 14:00 4 Pain Intensity Abdomen: Pain Intensity: 2 Right Abdomen: Pain Intensity: 4 Transfer of Care Handoff Completed per policy Notes Mental Status: alert / awake / arousable Patient Amnestic to Procedure: Yes Nausea / Vomiting: adequately controlled Pain: adequately controlled Airway Patency, RR, SpO2: stable & adequate BP & HR: stable & adequate Hydration State: stable & adequate Anesthetic Complications: no major complications apparent and Pt Satisfied with anesthetic care
[2023-04-24] MEDS: cefTRIAXone SODIUM 2,000 MG in DEXTROSE 5 % MINI-B 50 ML IV SCH (14:44)
[2023-04-24] MEDS: HYDROmorphone INJ 0.5 MG/0.5 ML SYR IV PRN ×2 (14:44→20:06)
--- NOTE | 2023-04-24 15:04 | Hospitalist Progress Note ---
Date of Service April 24, 2023 Assessment & Plan (1) Choledocholithiasis with acute cholecystitis: Plan: Ceftriaxone + metronidazole Now s/p ECRP with removal of stone and insertion of stent and also s/p lap román today by surgery Appreciate GI and surgery Repeat ERCP in 2 months for stent removal continue ceftrixone and flagyl (2) Crohns disease: Plan: Will hold all medications at this time. Recently had Remicade. (3) Obstructive sleep apnea: Plan: CPAP HS - patient to bring in his own (4) Depression: Plan: Currently not taking venlafaxine (5) Diabetes mellitus: Plan: HbA1C 5.8 [04/03] On Ozempic as outpatient, takes on a Friday therefore really shouldn't require insulin although he has 3+ glucose in his urine and glucose 232 on ER labs therefore suspect he is a low glucosylation rate and will prescribe Novolog for correction only Novolog: --Goal BSG Range: Low 110 mg/dL, High 140 mg/dL --Correction Factor: 45 mg/dL/unit No carb ratio --BSGs ACHS if eating, q6h if npo Plan VTE Prophylaxis - deferred pending ERCP/surgery decision Diet - as tolerated Disposition - continue hospitalization, hopefully d/c in the next 24-48 hrs Admission and Anticipated Discharge Date Admission Date: April 22, 2023 Subjective patient seen and examined, scheduled for lap román today Review of Systems Review of Systems: All systems reviewed are negative, apart from the ones contained in the history. Physical Exam Physical Exam: The patient is awake, alert and oriented 3, well developed and well nourished, normocephalic and atraumatic, lying in bed and in no acute distress. HEENT--PERRL, EOMI, mucous membranes and oropharynx mildly dry Neck--supple. No JVD. No bruits. Thyroid normal, trachea midline, no adenopathy. Heart--normal S1 and S2. No murmurs, rubs or gallops. Lungs--clear bilaterally, no respiratory distress, no accessory muscle use. Abdomen--normal bowel sounds and soft. Mild epigastric and left sided abdominal pain Extremities--no cyanosis or clubbing. No edema. Dermatologic--normal skin turgor, normal color, no abnormal lymph nodes, no rash. Neurologic--cranial nerves II through XII grossly intact. Rheumatologic--normal range of motion. Psychiatric--normal affect. Results & Data Results & Data Vital Signs (Past 12 Hours) Vital Signs Temp Pulse Pulse Resp BP Pulse Ox O2 Del Method 04/24/23 14:30 99 H 16 123/75 93 Room Air 04/24/23 13:30 101 H 16 132/84 92 Nasal Cannula 04/24/23 12:55 88 18 140/90 Nasal Cannula 04/24/23 12:34 98.8 F 83 16 132/88 93 Nasal Cannula 04/24/23 11:30 86 14 122/78 98 Oxymask 04/24/23 12:10 99.0 F 89 18 130/83 95 Nasal Cannula 04/24/23 12:00 91 H 18 136/83 95 Nasal Cannula 04/24/23 11:50 84 15 121/79 95 Nasal Cannula 04/24/23 11:40 85 17 114/85 95 Nasal Cannula 04/24/23 11:20 88 14 122/75 95 Oxymask 04/24/23 11:15 96.8 F L 87 16 121/76 94 Oxymask 04/24/23 08:22 98.1 F 90 18 127/83 93 Room Air 04/24/23 07:05 97.5 F L 74 16 143/81 H 95 Room Air O2 Flow Rate 04/24/23 14:30 04/24/23 13:30 2 04/24/23 12:55 2 04/24/23 12:34 2 04/24/23 11:30 3 04/24/23 12:10 2 04/24/23 12:00 2 04/24/23 11:50 2 04/24/23 11:40 2 04/24/23 11:20 6 04/24/23 11:15 6 04/24/23 08:22 04/24/23 07:05 PG Care Time/CCT Total # of Minutes Spent Total Time Spent with Patient: Total time spent is greater than 50% in coordination of care (as documented) at patient's floor/unit and/or counseling patient: Coding Level of Care Code 34828 SUB INP/OBS CARE 2/35MIN Diagnoses Choledocholithiasis with acute cholecystitis K80.42 Crohns disease K50.90 Obstructive sleep apnea G47.33 Depression F32.9 Diabetes mellitus E11.9 Time Spent (min) 35
[2023-04-25] MEDS: HYDROmorphone INJ 0.5 MG/0.5 ML SYR IV PRN (03:49)
[2023-04-25] MEDS: metroNIDAZOLE 500 MG/100 ML BAG IV SCH ×3 (07:36→23:30)
[2023-04-25 07:56] LABS: Basophils # (auto) 0.04 K/uL (0.00-0.20); Basophils % (auto) 0.3 %; Eosinophils # (auto) 0.03 K/uL (0.00-0.50); Eosinophils % (auto) 0.2 %; Hematocrit (blood only) 43.1 % (42.0-52.0); Immature Granulocytes # (auto) 0.05 K/uL (0.01-0.20); Immature Granulocytes % (auto) 0.4 %; Lymphocytes % (auto) 15.6 %; Mean Corpuscular Hemoglobin 32.2 pg (25.0-34.0); Mean Corpuscular Hgb Conc 34.8 g/dL (32.0-36.0); Mean Corpuscular Volume 92.5 fL (80.0-100.0); Mean Platelet Volume 9.7 fL (9.4-12.4); Monocytes # (auto) 1.39 K/uL (0.11-0.59); Monocytes % (auto) 11.4 %; Neutrophils # (auto) 8.78 K/uL (1.40-6.50); Neutrophils % (auto) 72.1 %; Platelet Count 210 K/uL (130-400); RDW Standard Deviation 43.9 fL (36.4-46.3); Red Blood Count 4.66 M/uL (4.70-6.10); White Blood Count 12.19 K/ul (4.8-10.8)
[2023-04-25 08:19] LABS: Albumin Globulin Ratio 1.1 (0.9-2); Albumin Level 3.5 gm/dl (3.4-5.0); BUN Creatinine Ratio 17.1 (10-20); Bilirubin,Total 1.9 mg/dl (0.2-1.0); Calcium 8.2 mg/dl (8.6-10.3); Creatinine Clr Calc Pharmacy 130.9 ml/min; Est GFR (African American) 116.2 ml/min; Est GFR (Non-African American) 100.3 ml/min; Globulin 3.3 gm/dl (2.5-4.0); Potassium 3.5 mmol/L (3.5-5.1); Total Protein 6.8 gm/dl (6.0-8.3)
[2023-04-25] MEDS: INSULIN ASPART PER UNIT CHARGE SC SCH ×4 (08:53→21:22)
--- NOTE | 2023-04-25 11:24 | Surgery Progress Note ---
Date of Service April 25, 2023 Assessment & Plan (1) Hx laparoscopic cholecystectomy: Plan: pod 1 doing as expected will advance diet trend LFT's Admission and Anticipated Discharge Date Admission Date: April 22, 2023 Subjective Patient seen. Having expected postoperative pain. Current pain management regimen is working for him. He would like more to eat Physical Exam Physical Exam: Alert. Mildly uncomfortable secondary to discomfort Abdomen is soft with expected incisional tenderness. His incisions look good. Results & Data Vital Signs (Past 12 Hours) Vital Signs Temp Pulse Resp BP Pulse Ox O2 Del Method O2 Flow Rate 04/25/23 07:26 36.8 C 95 H 18 113/74 92 Room Air 04/25/23 02:40 37.0 C 101 H 18 115/75 94 Nasal Cannula 2 PG Care Time/CCT Total # of Minutes Spent Total Time Spent with Patient: Total time spent is greater than 50% in coordination of care (as documented) at patient's floor/unit and/or counseling patient: Coding Level of Care Code 86852 Post Operative Follow-Up Diagnoses Hx laparoscopic cholecystectomy Z90.49
--- NOTE | 2023-04-25 12:29 | Hospitalist Progress Note ---
Date of Service April 25, 2023 Assessment & Plan (1) Choledocholithiasis with acute cholecystitis: Plan: Ceftriaxone + metronidazole Now s/p ECRP with removal of stone and insertion of stent and also s/p lap román today by surgery Appreciate GI and surgery Repeat ERCP in 2 months for stent removal continue ceftrixone and flagyl Tolerating diet (2) Crohns disease: Plan: Will hold all medications at this time. Recently had Remicade. (3) Obstructive sleep apnea: Plan: CPAP HS - patient to bring in his own (4) Depression: Plan: Currently not taking venlafaxine (5) Diabetes mellitus: Plan: HbA1C 5.8 [04/03] On Ozempic as outpatient, takes on a Friday therefore really shouldn't require insulin although he has 3+ glucose in his urine and glucose 232 on ER labs therefore suspect he is a low glucosylation rate and will prescribe Novolog for correction only Novolog: --Goal BSG Range: Low 110 mg/dL, High 140 mg/dL --Correction Factor: 45 mg/dL/unit No carb ratio --BSGs ACHS if eating, q6h if npo Plan VTE Prophylaxis - scd Diet - as tolerated Disposition - continue hospitalization, hopefully d/c in the next 24-48 hrs Admission and Anticipated Discharge Date Admission Date: April 22, 2023 Subjective patient seen and examined, still sore from surgery, participating in physical therapy, ambulating the hallway Review of Systems Review of Systems: All systems reviewed are negative, apart from the ones contained in the history. Physical Exam Physical Exam: The patient is awake, alert and oriented 3, well developed and well nourished, normocephalic and atraumatic, lying in bed and in no acute distress. HEENT--PERRL, EOMI, mucous membranes and oropharynx mildly dry Neck--supple. No JVD. No bruits. Thyroid normal, trachea midline, no adenopathy. Heart--normal S1 and S2. No murmurs, rubs or gallops. Lungs--clear bilaterally, no respiratory distress, no accessory muscle use. Abdomen--normal bowel sounds and soft. Mild epigastric and left sided abdominal pain Extremities--no cyanosis or clubbing. No edema. Dermatologic--normal skin turgor, normal color, no abnormal lymph nodes, no rash. Neurologic--cranial nerves II through XII grossly intact. Rheumatologic--normal range of motion. Psychiatric--normal affect. Results & Data Results & Data Vital Signs (Past 12 Hours) Vital Signs Temp Pulse Resp BP Pulse Ox O2 Del Method O2 Flow Rate 04/25/23 07:26 98.2 F 95 H 18 113/74 92 Room Air 04/25/23 02:40 98.6 F 101 H 18 115/75 94 Nasal Cannula 2 PG Care Time/CCT Total # of Minutes Spent Total Time Spent with Patient: Total time spent is greater than 50% in coordination of care (as documented) at patient's floor/unit and/or counseling patient: Coding Level of Care Code 87984 SUB INP/OBS CARE 2MIN Diagnoses Choledocholithiasis with acute cholecystitis K80.42 Crohns disease K50.90 Obstructive sleep apnea G47.33 Depression F32.9 Diabetes mellitus E11.9 Time Spent (min) 35
[2023-04-25] MEDS: cefTRIAXone SODIUM 2,000 MG in DEXTROSE 5 % MINI-B 50 ML IV SCH (13:23)
[2023-04-26 07:45] LABS: Basophils # (auto) 0.04 K/uL (0.00-0.20); Basophils % (auto) 0.3 %; Eosinophils # (auto) 0.41 K/uL (0.00-0.50); Eosinophils % (auto) 3.5 %; Hematocrit (blood only) 39.1 % (42.0-52.0); Hemoglobin 13.8 g/dl (14.0-18.0); Immature Granulocytes # (auto) 0.04 K/uL (0.01-0.20); Immature Granulocytes % (auto) 0.3 %; Lymphocytes # (auto) 1.51 K/uL (1.20-3.40); Mean Corpuscular Hemoglobin 32.1 pg (25.0-34.0); Mean Corpuscular Hgb Conc 35.3 g/dL (32.0-36.0); Mean Corpuscular Volume 90.9 fL (80.0-100.0); Mean Platelet Volume 9.7 fL (9.4-12.4); Neutrophils # (auto) 8.22 K/uL (1.40-6.50); Neutrophils % (auto) 70.9 %; Platelet Count 226 K/uL (130-400); RDW Coefficient of Variation 12.7 % (11.5-14.5); RDW Standard Deviation 42.2 fL (36.4-46.3); White Blood Count 11.62 K/ul (4.8-10.8)
[2023-04-26 08:06] LABS: Albumin Level 3.2 gm/dl (3.4-5.0); BUN Creatinine Ratio 17.1 (10-20); Calcium 8.1 mg/dl (8.6-10.3); Creatinine Clr Calc Pharmacy 153.4 ml/min; Globulin 3.3 gm/dl (2.5-4.0); Potassium 3.4 mmol/L (3.5-5.1); Total Protein 6.5 gm/dl (6.0-8.3)
[2023-04-26] MEDS: metroNIDAZOLE 500 MG/100 ML BAG IV SCH (08:18)
[2023-04-26] MEDS: INSULIN ASPART PER UNIT CHARGE SC SCH (09:14)
--- NOTE | 2023-04-26 10:06 | Surgery Progress Note ---
Date of Service April 26, 2023 Assessment & Plan (1) Hx laparoscopic cholecystectomy: Plan: He is doing well. From my standpoint he could be discharged. The erythema on his abdomen was actually present prior to incisions and were noted in the operating room. Nonetheless because of the infected nature of his gallbladder discharging home on 5 to 7 days of antibiotics may be prudent. I would like to see him for follow-up in 1 to 2 weeks. Admission and Anticipated Discharge Date Admission Date: April 22, 2023 Subjective Patient seen. Having expected postoperative tenderness but nothing unexpected. He is tolerating his diet without issue and is certainly feeling better today than yesterday. Physical Exam Physical Exam: Alert. No acute distress Abdomen is soft with expected tenderness. He does have some erythema at several of his incisions as well as in his left lower quadrant. I will state that he had the erythema prior to incisions as we had noticed him in the operating room and felt to be secondary to an allergic reaction Results & Data Vital Signs (Past 12 Hours) Vital Signs Temp Pulse Resp BP Pulse Ox O2 Del Method 04/26/23 07:30 36.9 C 80 16 127/78 91 Room Air PG Care Time/CCT Total # of Minutes Spent Total Time Spent with Patient: Total time spent is greater than 50% in coordination of care (as documented) at patient's floor/unit and/or counseling patient: Coding Level of Care Code 75264 Post Operative Follow-Up Diagnoses Hx laparoscopic cholecystectomy Z90.49
--- NOTE | 2023-04-26 11:13 | Discharge Summary ---
Date of Service April 26, 2023 Admission HPI Per Admitting Provider Musa Parker is a 52 year old male with Crohn's disease who presents to the ER with right sided abdominal pain. No prior history of biliary colic. Started while sleeping at 2am and woke him up, constant since then, no radiation. No diarrhea. Associated nausea and vomiting earlier. Severity 8/10 earlier, now 2/10. Prior history of colectomy for crohn's disease with prior small bowel obstructions. Principal Diagnosis cholecystitis Discharge Exam The patient is awake, alert and oriented 3, well developed and well nourished, normocephalic and atraumatic, lying in bed and in no acute distress. HEENT--PERRL, EOMI, mucous membranes and oropharynx mildly dry Neck--supple. No JVD. No bruits. Thyroid normal, trachea midline, no adenopathy. Heart--normal S1 and S2. No murmurs, rubs or gallops. Lungs--clear bilaterally, no respiratory distress, no accessory muscle use. Abdomen--normal bowel sounds and soft. Mild epigastric and left sided abdominal pain Extremities--no cyanosis or clubbing. No edema. Dermatologic--normal skin turgor, normal color, no abnormal lymph nodes, no rash. Neurologic--cranial nerves II through XII grossly intact. Rheumatologic--normal range of motion. Psychiatric--normal affect. Discharge Data Allergies Allergy/AdvReac Type Severity Reaction Status Date / Time No Known Drug Allergies Allergy Unknown Verified 04/22/23 12:43 Consultations 04/22/23 13:40 ED Decision to Admit Stat 04/22/23 14:09 Consult Gastroenterology Routine Consult General Surgery Routine Procedures Performed Operation Date: 04/24/23 09:05 Actual Procedures p Laparoscopic Cholecystectomy(Not Applicable) - Sagar Magallanes, Ordered Studies 04/22/23 11:26 CT abd pelvis IV con only Stat 04/23/23 [place] ERCP biliary ductal Routine Hospital Course (1) Choledocholithiasis with acute cholecystitis: Ceftriaxone + metronidazole Now s/p ECRP with removal of stone and insertion of stent and also s/p lap yair today by surgery Appreciate GI and surgery Repeat ERCP in 2 months for stent removal d/c on cephalexin and Flagyl for 7 more days Tolerating diet (2) Crohns disease: Will hold all medications at this time. Recently had Remicade. (3) Obstructive sleep apnea: CPAP HS - patient to bring in his own (4) Depression: Currently not taking venlafaxine (5) Diabetes mellitus: HbA1C 5.8 [04/03] On Ozempic as outpatient, takes on a Friday therefore really shouldn't require insulin although he has 3+ glucose in his urine and glucose 232 on ER labs therefore suspect he is a low glucosylation rate and will prescribe Novolog for correction only Novolog: --Goal BSG Range: Low 110 mg/dL, High 140 mg/dL --Correction Factor: 45 mg/dL/unit No carb ratio --BSGs ACHS if eating, q6h if npo Plan VTE Prophylaxis - scd Diet - as tolerated Disposition - continue hospitalization, hopefully d/c in the next 24-48 hrs Total Time Total Time Spent Total Time Spent (In Minutes): 35 Discharge Plan Discharge Items Patient Disposition: Home - Self-Care Reason For Visit: CHOLEDOCHOLITHIASIS WITH ACUTE YAIR Discharge Diagnosis: acute cholecystitis Activity: As commented below Lifting: No more than 25 pounds Bathing Comment: You can shower, no baths or pools for 2 weeks Exercise/Sports: Wait until after follow-up appointment Non-emergency contact: Surgeon Call non-emergency contact if: you have any medication questions, your symptoms worsen, your pain is worsening, your pain is unusual for you, your temperature is above 101.5, your wound has increased redness, your wound has increased drainage and your wound pain has increased Follow-up/Referrals: Suhas Quiroz III, CRNP [Primary Care Provider] - Sagar Magallanes DO [Surgeon] - 05/20/23 10:00 am (call office for a follow up appointment in 2 weeks ) Jamal Lawler MD [Physician] - Diet: Regular Addtl Attending Provider Instructions: You have surgical glue called dermabond on your surgical site incisions. You may shower with this on. This will tend to come off within a couple of weeks. Do not pick at it. You will need to follow up with GI as an outpatient to have your stent removed. You need to take all of your antibiotic as GI has prescribed Pending Studies at Discharge: Yes Studies:: surgical pathology Stand-Alone Forms: [employer], Smoking Cessation Medications and DC Order Prescriptions: New metronidazole [Flagyl] 375 mg capsule 375 mg PO BID 7 Days Qty: 14 0RF cephalexin 500 mg capsule 500 mg PO BID 7 Days Qty: 14 0RF Continued Remicade 100 mg recon soln 10 mg IV UD Patient Comments: 10 mg/kg IV Q6 Weeks; Rx Instructions: 10 mg/kg IV Q6 Weeks; (DME) lancets Misc See Rx Instructions .ROUTE .MEDSUPPLY Qty: 100 0RF Rx Instructions: once daily as directed - dx E11.9 (DME) BD Luer-Ying Syringe 3 mL 25 gauge x 1" syringe See Rx Instructions .Route Qty: 30 0RF Rx Instructions: As directed calcium carbonate-vitamin D3 [Calcium 500 + D] 500 mg(1,250mg) -200 unit tablet 1 tab PO QPM dexamethasone sodium phos (PF) 10 mg/mL kit 5 mg IV UD (DME) blood sugar diagnostic Strip See Rx Instructions .ROUTE .MEDSUPPLY Qty: 10 0RF Rx Instructions: once daily as directed - dx E11.9 (DME) blood-glucose meter Kit See Rx Instructions .ROUTE .MEDSUPPLY Qty: 1 0RF Rx Instructions: once daily as directed - dx E11.9 cyanocobalamin (vitamin B-12) 1,000 mcg/mL solution 1,000 mcg IM Q7D Qty: 30 3RF Rx Instructions: FRIDAY (DME) OneTouch Verio test strips Strip See Rx Instructions .ROUTE .MEDSUPPLY Qty: 100 1RF Rx Instructions: Use to test once daily albuterol sulfate 90 mcg/actuation HFA aerosol inhaler 2 puff INHALATION Q6H PRN (Reason: Wheezing) Qty: 8.5 1RF mercaptopurine 50 mg tablet 100 mg PO QPM Qty: 180 2RF venlafaxine [Effexor XR] 37.5 mg capsule,extended release 24hr 0 mg PO QPM Rx Instructions: Per pt, he is currently holding medication. PCP is not aware. Original directions were 75mg at bedtime colesevelam [WelChol] 625 mg tablet 625 mg PO BID Ozempic 0.25 mg or 0.5 mg (2 mg/3 mL) pen injector 0.5 mg subcut WK Rx Instructions: Mondays Discharge Orders: Discharge Order (Routine); Ordered 04/26/23 Ordered By: Melonie Bailon Admission Data Admit Date/Time: 04/22/23 14:12 Attending Provider: Melonie Bailon Admit Provider: Javier Mckeon Primary Care Provider: Suhas Quiroz III Other Providers: Javier Mckeon ; Jamal Lawler ; Sagar Magallanes Other Interventions: Discharge Summary Assessment (RN) Last Done: 04/26/23 11:03 Coding Level of Care Code 34569 INP/OBS DISCH >30 MIN Diagnoses Choledocholithiasis with acute cholecystitis K80.42 Crohns disease K50.90 Obstructive sleep apnea G47.33 Depression F32.9 Diabetes mellitus E11.9 Time Spent (min) 35
== END 2023-04-26 11:24 | disposition home or self-care (01) | DRG 418 ==
LOC: ED 09:47 → 3N 14:12 → SUATTDRO 14:12 → 3N 17:20